=== PATIENT | female | born 1955 | race Caucasian/White ===

== ENCOUNTER 2020-05-15 10:12 | Outpatient (REF) | payer MEDICARE, SELFPAY ==
--- NOTE | 2020-05-15 | MM_ITS ---
EXAMINATION: MM SCREENING DIGITAL BREAST TOMOSYNTHESIS, BILATERAL CLINICAL INFORMATION: Screening. Asymptomatic. The lifetime risk of breast cancer based on the Tyrer-Cuzick Model is 9%. COMPARISON: Mammography: 05/10/2019, 04/20/2018 TECHNIQUE: Digital breast tomosynthesis is performed in both the craniocaudal and mediolateral oblique views along with computer-aided detection (CAD). Synthesized 2D images are generated from the tomosynthesis. FINDINGS: The breasts are extremely dense, which lowers the sensitivity of mammography (ACR BI-RADS breast composition Category d). There are no significant masses, abnormal calcifications, or other abnormalities. Parenchymal pattern is similar to prior exams. No significant changes. MM/MM tomosynthesis screening BI IMPRESSION: No mammographic evidence of malignancy. ASSESSMENT: BI-RADS 1: Negative RECOMMENDATION: Routine annual mammography screening. This patient's information was entered into a reminder system with a target due date for their next mammogram.
== END 2020-05-15 10:13 | disposition home or self-care (01) ==
LOC: HO.MAMMO 10:12
PROVIDERS: PCP Internal Medicine; Visit Provider Internal Medicine
DX: Z12.31 Encounter for screening mammogram for malignant neoplasm of breast (principal)
CPT/HCPCS: 77063; 77067

== ENCOUNTER → 2020-06-09 13:00 | Outpatient (BNVA) | payer MEDICARE, SELFPAY | PROVIDERS: Visit Provider Physician Assistant | DX: M18.12 Unilateral primary osteoarthritis of first carpometacarpal joint, left hand (principal) | CPT/HCPCS: 20600; 99212; J1020 ==

== ENCOUNTER → 2020-06-24 15:00 | Outpatient (BNVA) | payer MEDICARE, SELFPAY | PROVIDERS: PCP Internal Medicine; Referring Provider Internal Medicine; Visit Provider Obstetrics & Gynecology | DX: Z76.89 Persons encountering health services in other specified circumstances (principal) ==

== ENCOUNTER 2020-10-14 07:19 | Outpatient (REF) | payer MEDICARE, SELFPAY ==
[2020-10-14 11:18] LABS: MANUAL DIFF FLAG NO
[2020-10-14 11:27] LABS: Basophils Absolute Auto 0.1 X10*3/uL (0.0-0.2); Basophils Percent Auto 0.9 % (0-2); Eosinophils Absolute Auto 0.2 X10*3/uL (0.0-0.4); Eosinophils Percent Auto 2.9 % (0-4); Hemoglobin 14.3 g/dl (12.0-16.0); Imm Gran Abs Auto 0.01 X10*3/uL (0.00-0.03); Imm Gran Pct Auto 0.2 % (0.0-0.4); Lymphocytes Percent Auto 34.8 % (20-40); Mean Corpuscular HGB Conc 32.5 g/dl (31.0-35.0); Mean Corpuscular Hemoglobin 30.5 pg (27.0-33.0); Mean Corpuscular Volume 93.8 fL (80-98); Mean Platelet Volume 12.1 fL (9.4-12.3); Monocytes Absolute Auto 0.3 X10*3/uL (0.1-1.2); Monocytes Percent Auto 5.8 % (2-11); Neutrophils Absolute Auto 3.3 X10*3/uL (2.0-8.3); Neutrophils Percent Auto 55.4 % (45-73); Platelet Count 200 X10*3/uL (160-400); Red Blood Count 4.69 X10*6/uL (4.20-5.50); Red Cell Distribution Width 13.1 % (11.0-16.0); White Blood Count 5.9 X10*3/uL (4.8-10.8)
[2020-10-14 12:09] LABS: Alanine Aminotransferase 23 U/L (0-31); Albumin Level 4.3 g/dL (3.5-5.0); Alkaline Phosphatase 62 U/L (39-117); Anion Gap 17 (12-20); Aspartate Amino Transferase 23 U/L (5-31); Bilirubin Total 0.3 mg/dL (0.0-1.0); Blood Urea Nitrogen 28 mg/dL (9-16); Calcium 9.2 mg/dL (8.4-10.2); Carbon Dioxide 24 mmol/L (22-29); Chloride 104 mmol/L (96-108); Cholesterol 259 mg/dL; Estimated Glomerular Filt Rate > 60; Glucose Fasting 99 mg/dL (60-99); HDL Cholesterol 77 mg/dL; LDL Cholesterol Calculated 165 mg/dl; Potassium 4.3 mmol/L (3.3-5.1); Sodium 141 mmol/L (135-145); Total Protein 6.9 g/dL (6.5-8.0); Triglycerides 85 mg/dL
== END 2020-10-14 07:20 | disposition home or self-care (01) ==
LOC: HO.HMGCLDS 07:19
PROVIDERS: PCP Internal Medicine; Visit Provider Internal Medicine
DX: Z00.00 Encounter for general adult medical examination without abnormal findings (principal); K21.9 Gastro-esophageal reflux disease without esophagitis; F41.9 Anxiety disorder, unspecified; E78.00 Pure hypercholesterolemia, unspecified
CPT/HCPCS: 36415; 80053; 80061; 85025

== ENCOUNTER 2020-10-20 16:35 | Outpatient (REF) | payer MEDICARE, SELFPAY ==
--- NOTE | ~2020-10-20 | XR_ITS ---
EXAMINATION: XR HAND, LEFT CLINICAL INFORMATION: Left hand pain. COMPARISON: 09/07/2018 and 05/16/2019 TECHNIQUE: PA, lateral, and oblique views of the left hand. FINDINGS: No acute fracture or dislocation is evident. There is again noted to be joint space narrowing with subchondral cyst formation spurring and articular irregularity involving the 2nd, 3rd, and 5th distal interphalangeal joints. No erosive changes to suggest erosive arthritides is seen. There is also degenerative spurring and sclerosis involving the 1st carpometacarpal joint. There is no significant change compared to study of 05/16/2019. XR/XR hand LT min 3V IMPRESSION: Changes of osteoarthritis involving the 1st carpometacarpal joint and the 2nd, 3rd, and 5th distal interphalangeal joints. No evidence of erosive arthritides.
== END 2020-10-20 16:36 | disposition home or self-care (01) ==
LOC: HO.HOSX 16:35
PROVIDERS: Visit Provider Orthopaedic Surgery
DX: M79.642 Pain in left hand (principal)
CPT/HCPCS: 73130

== ENCOUNTER → 2020-10-21 13:27 | Outpatient (BNVA) | payer MEDICARE, SELFPAY | PROVIDERS: PCP Internal Medicine; Visit Provider Orthopaedic Surgery | DX: M18.12 Unilateral primary osteoarthritis of first carpometacarpal joint, left hand (principal) | CPT/HCPCS: 20605; 99202; J1020 ==

== ENCOUNTER 2020-11-07 09:03 | Day surgery (SDC) | payer MEDICARE, SELFPAY ==
[2020-11-04 08:14] VITALS: BMI 23.1
[2020-11-07 10:48] VITALS: BP 147/66; PULSE 64; RESP 16; TEMP 36.2; O2SAT 99
[2020-11-07] MEDS: Lactated Ringers 1,000 ML 50 ML IV (10:54)
--- NOTE | 2020-11-07 11:13 | P.CONAN_ITS ---
[facility] Active Problems Active Problems: All Active Problems (Updated 11/04/20 @ 08:11 by Carol pimentel) Arthritis of carpometacarpal (CMC) joint of left thumb (Acute) Past Medical History Medical History Anxiety Arthritis GERD (gastroesophageal reflux disease) History of ectopic Volvulus Family History Family History Father Alzheimer's dementia Mother Emphysema of lung Surgical History Surgical History History of intestinal surgery History of ovarian cystectomy History of salpingectomy Hx of colonoscopy Social History Social History Are you a primary home care rn to a significant other at home: No Do you presently have visiting nurse or other home services: No Alcohol intake: current Alcohol intake frequency: holidays/special occasions only Smoking Status: Current every day smoker Tobacco Type: Cigarette Packs Per Day: 0.5 Years Smoked: 0.5 Advance Directives: No Advance Directives Information Provided: No Advance Directives on File: No Current occupational status: retired Current occupation: rt handed Sexual orientation: Straight/Heterosexual Gender identity: female Meds Allergies Allergy/AdvReac Type Severity Reaction Status Date / Time Sulfa (Sulfonamide Allergy Unknown SKIN Verified 11/04/20 08:11 Antibiotics) HURTS, [SULFA (SULFONAMIDE nerve ANTIBIOTICS)] pain, skin extremely sensitive, painful yellow jacket bee Allergy Unknown rash Uncoded 11/04/20 08:11 Active Medications: Current Medications Generic Name Dose Route Start Last Admin Trade Name Freq PRN Reason Stop Dose Admin Lactated Ringer's 1,000 mls @ 50 mls/hr 11/06/20 07:30 11/07/20 10:54 Lr IV 50 mls/hr .Q20H CRISPIN Administration Sodium Biphosphate/Sodium Phosphate 133 ml 11/07/20 10:45 Sodium Phosphate,Glades-Dibasic 133 Ml Enema MT ONCE PRN Poor Colonoscopy Prep Results Home Medications Medication Instructions Recorded Confirmed Last Taken Type nortriptyline 50 mg capsule 50 mg PO BEDTIME 06/09/20 11/04/20 Unknown History pantoprazole 40 mg granules 40 mg PO DAILY 06/09/20 11/07/20 11/07/20 06:00 History delayed-release for susp in packet trazodone 50 mg tablet 50 mg PO BEDTIME PRN 06/09/20 11/04/20 Unknown History Exam Exam Date and Time: November 07, 2020 1113 Height,Weight and Vital Signs: Height 5 ft 3.5 in Weight 60.328 kg Last Vital Signs Temp 97.2 F 11/07/20 10:48 Pulse 64 11/07/20 10:48 Resp 16 11/07/20 10:48 BP 147/66 H 11/07/20 10:48 Pulse Ox 99 11/07/20 10:48 Airway Mallampati Class: II TM Dist: >3cm Neck ROM: Full
[2020-11-07 12:11] VITALS: BP 108/59; PULSE 55; RESP 16; TEMP 36.1; O2SAT 98
--- NOTE | 2020-11-07 12:12 | PM.OP ---
Brief Operative Note Date of Service: 11/07/20 Pre-op diagnosis: GERD, Screening Post-op diagnosis: other (Small hiatal hernia, Gastric polyps, Mild diverticulosis, Internal hemrorhoids) Procedure: EGD with biopsies, Colonoscopy to the anastomosis and small intestine Surgeon: Bhupinder Carlisle Anesthesia: MAC Estimated blood loss (mL): 4.0 Pathology: other (A. Gastric polyps) Condition: stable Disposition: PACU
[2020-11-07 12:30] VITALS: BP 103/39; PULSE 63; RESP 16; TEMP 36.1; O2SAT 98
--- NOTE | 2020-11-07 12:39 | OP_ITS ---
SURGEON: Bhupinder Carlisle MD INDICATIONS: The patient presents for evaluation of gastroesophageal reflux and colorectal cancer screening with personal history of colon polyps. Full consent has been obtained from her for both procedures, including risks of bleeding and perforation. PREOPERATIVE DIAGNOSIS: POSTOPERATIVE DIAGNOSIS: PROCEDURE PERFORMED: Esophagogastroduodenoscopy with biopsies, and colonoscopy to the anastomosis. ESTIMATED BLOOD LOSS: COMPLICATIONS: ANESTHESIA: Monitored anesthesia care. ASSISTANTS: SPECIMENS: PREOPERATIVE DIAGNOSES: Gastroesophageal reflux and colorectal cancer screening. POSTOPERATIVE DIAGNOSES: Gastroesophageal reflux and colorectal cancer screening, small hiatal hernia, gastric polyps, mild diverticulosis, internal hemorrhoids. DESCRIPTION OF PROCEDURE: The patient was placed in the left lateral decubitus position. The Olympus video gastroscope was passed in the posterior oropharynx and upper esophagus under direct vision. The scope was passed slowly into the distal esophagus. The gastroesophageal junction appeared normal at 36 cm. There was no sign of any esophagitis nor Burnett's mucosa. There was a small hiatal hernia. The scope was advanced to the pylorus and the duodenum was cannulated to the descending portion. The duodenum including the bulb appeared normal without mass or ulceration. The scope was withdrawn back in the stomach. The gastric antrum and body appeared normal with good peristalsis. Scope was retroflexed visualizing the proximal stomach carefully, which appeared normal, without any sign of mass or ulceration, other than some hyperplastic gastric polyps. Several of these were biopsied. The scope was straightened out and withdrawn back into the esophagus. The esophageal mucosa appeared normal. The scope was withdrawn from the patient. She was turned around for colonoscopy. The digital rectal exam revealed no abnormalities. The Olympus video pediatric colonoscope was entered into the rectum and advanced easily to the anastomosis. The small bowel mucosa appeared normal. The anastomosis appeared normal. The scope was then slowly withdrawn assessing all mucosal surfaces carefully. Preparation was excellent. I did not visualize any sign of polyps, colitis, nor angiodysplasia. There was a mild amount of sigmoid diverticulosis. In the rectum, scope was retroflexed visualizing internal hemorrhoids, but no other pathology. The rectal mucosa appeared normal. The scope was straightened out and withdrawn from the patient. She tolerated the procedures well and was returned to the recovery area in stable condition. IMPRESSION: 1. Gastric polyps. 2. Small hiatal hernia. 3. Mild diverticulosis. 4. Internal hemorrhoids. PLAN: The results of biopsy will be checked. She was advised to continue her daily pantoprazole for her reflux. I do not think she will need any further upper endoscopies. I would recommend a repeat colonoscopy in 5 years for further screening given the previous history of polyps. MD ROMEL Piedra/JOAQUÍN / [id number]
== END 2020-11-07 13:20 | disposition home or self-care (01) ==
PROVIDERS: PCP Internal Medicine; Visit Provider Internal Medicine
PROC: (CPT 43239; principal; 2020-11-07 10:20)
DX: Z12.11 Encounter for screening for malignant neoplasm of colon (principal); Z86.010 Personal history of colon polyps; K57.30 Diverticulosis of large intestine without perforation or abscess without bleeding; K64.8 Other hemorrhoids; K21.9 Gastro-esophageal reflux disease without esophagitis; K31.7 Polyp of stomach and duodenum; K44.9 Diaphragmatic hernia without obstruction or gangrene; Z79.899 Other long term (current) drug therapy
CPT/HCPCS: 43239; G0105; 88305; 88342; J3010

== ENCOUNTER → 2021-05-05 14:33 | Outpatient (BNVA) | payer MEDICARE, SELFPAY | PROVIDERS: PCP Internal Medicine; Visit Provider Orthopaedic Surgery | DX: M18.12 Unilateral primary osteoarthritis of first carpometacarpal joint, left hand (principal) | CPT/HCPCS: 20600; 99212; J1020 ==

== ENCOUNTER 2021-05-27 06:14 | Outpatient (REF) | payer MEDICARE, SELFPAY ==
[2021-05-27 11:55] LABS: Alanine Aminotransferase 18 U/L (0-31); Albumin Level 4.2 g/dL (3.5-5.0); Alkaline Phosphatase 58 U/L (39-117); Anion Gap 13 (12-20); Aspartate Amino Transferase 19 U/L (5-31); Bilirubin Total 0.5 mg/dL (0.0-1.0); Blood Urea Nitrogen 28 mg/dL (9-16); Calcium 8.9 mg/dL (8.4-10.2); Carbon Dioxide 25 mmol/L (22-29); Chloride 106 mmol/L (96-108); Cholesterol 188 mg/dL; Estimated Glomerular Filt Rate > 60; Glucose Fasting 97 mg/dL (60-99); HDL Cholesterol 70 mg/dL; LDL Cholesterol Calculated 104 mg/dl; Potassium 4.3 mmol/L (3.3-5.1); Sodium 140 mmol/L (135-145); Total Protein 6.8 g/dL (6.5-8.0); Triglycerides 71 mg/dL
== END 2021-05-27 06:15 | disposition home or self-care (01) ==
LOC: HO.HMGCLDS 06:14
PROVIDERS: PCP Internal Medicine; Visit Provider Internal Medicine
DX: K21.9 Gastro-esophageal reflux disease without esophagitis (principal); E78.00 Pure hypercholesterolemia, unspecified
CPT/HCPCS: 36415; 80053; 80061

== ENCOUNTER 2021-05-29 12:02 | Outpatient (REF) | payer MEDICARE, SELFPAY ==
--- NOTE | ~2021-05-29 | MM_ITS ---
EXAMINATION: MM SCREENING DIGITAL BREAST TOMOSYNTHESIS, BILATERAL CLINICAL INFORMATION: Screening. Asymptomatic. The lifetime risk of breast cancer based on the Tyrer-Cuzick Model is 6%. COMPARISON: Mammography: 05/15/2020, 05/10/2019, 04/20/2018, 03/16/2017 TECHNIQUE: Digital breast tomosynthesis is performed in both the craniocaudal and mediolateral oblique views along with computer-aided detection (CAD). Synthesized 2D images are generated from the tomosynthesis. FINDINGS: The breasts are extremely dense, which lowers the sensitivity of mammography (ACR BI-RADS breast composition Category d). There are no significant masses, abnormal calcifications, or other abnormalities. Parenchymal pattern is similar to prior studies. There is no developing density. No interval mass or architectural abnormality or abnormal calcifications. Skin contours are smooth. MM/MM tomosynthesis screening BI IMPRESSION: No significant changes from prior exams. ASSESSMENT: BI-RADS 1: Negative RECOMMENDATION: Routine annual mammography screening. This patient's information was entered into a reminder system with a target due date for their next mammogram.
== END 2021-05-29 12:03 | disposition home or self-care (01) ==
LOC: HO.MAMMO 12:02
PROVIDERS: PCP Internal Medicine; Visit Provider Internal Medicine
DX: Z12.31 Encounter for screening mammogram for malignant neoplasm of breast (principal)
CPT/HCPCS: 77063; 77067

== ENCOUNTER → 2021-09-08 12:14 | Outpatient (BNVA) | payer MEDICARE, SELFPAY | PROVIDERS: PCP Internal Medicine; Visit Provider Orthopaedic Surgery | DX: M18.12 Unilateral primary osteoarthritis of first carpometacarpal joint, left hand (principal) | CPT/HCPCS: 20605; 99212; J1020 ==

== ENCOUNTER → 2022-01-13 13:07 | Outpatient (BNVA) | payer MEDICARE, SELFPAY | PROVIDERS: PCP Internal Medicine; Visit Provider Orthopaedic Surgery | DX: M18.12 Unilateral primary osteoarthritis of first carpometacarpal joint, left hand (principal) | CPT/HCPCS: 20605; 99212; J1020; J1100 ==

== ENCOUNTER → 2022-06-22 09:01 | Outpatient (BNVA) | payer MEDICARE, SELFPAY | PROVIDERS: PCP Internal Medicine; Visit Provider Orthopaedic Surgery | DX: M18.12 Unilateral primary osteoarthritis of first carpometacarpal joint, left hand (principal) | CPT/HCPCS: 20600; 99212; J1020 ==

== ENCOUNTER 2022-07-27 12:42 | Outpatient (REF) | payer MEDICARE, SELFPAY ==
--- NOTE | ~2022-07-27 | MM_ITS ---
EXAMINATION: MM SCREENING DIGITAL BREAST TOMOSYNTHESIS, BILATERAL CLINICAL INFORMATION: Screening. Asymptomatic. The lifetime risk of breast cancer based on the Tyrer-Cuzick Model is 6%. COMPARISON: Mammography: 05/29/2021, 05/15/2020, 05/10/2019 TECHNIQUE: Digital breast tomosynthesis is performed in both the craniocaudal and mediolateral oblique views along with computer-aided detection (CAD). Synthesized 2D images are generated from the tomosynthesis. FINDINGS: The breasts are extremely dense, which lowers the sensitivity of mammography (ACR BI-RADS breast composition Category d). Breast tissue composition borders on heterogeneously dense. No developing density or architectural abnormality. There are no significant masses, abnormal calcifications, or other abnormalities. The axilla and skin contours are unremarkable. MM/MM tomosynthesis screening BI IMPRESSION: No mammographic evidence of malignancy. ASSESSMENT: BI-RADS 1: Negative RECOMMENDATION: Routine annual mammography screening. This patient's information was entered into a reminder system with a target due date for their next mammogram.
== END 2022-07-27 12:43 | disposition home or self-care (01) ==
LOC: HO.MAMMO 12:42
PROVIDERS: Visit Provider Internal Medicine
DX: Z12.31 Encounter for screening mammogram for malignant neoplasm of breast (principal)
CPT/HCPCS: 77063; 77067

== ENCOUNTER 2022-07-28 06:52 | Outpatient (REF) | payer MEDICARE, SELFPAY ==
[2022-07-28 11:29] LABS: MANUAL DIFF FLAG NO
[2022-07-28 11:54] LABS: Basophils Absolute Auto 0.1 X10*3/uL (0.0-0.2); Basophils Percent Auto 1.3 % (0-2); Eosinophils Absolute Auto 0.2 X10*3/uL (0.0-0.4); Eosinophils Percent Auto 2.8 % (0-4); Hemoglobin 14.2 g/dl (12.0-16.0); Imm Gran Abs Auto 0.01 X10*3/uL (0.00-0.03); Imm Gran Pct Auto 0.2 % (0.0-0.4); Lymphocytes Absolute Auto 1.8 X10*3/uL (1.2-4.9); Lymphocytes Percent Auto 33.6 % (20-40); Mean Corpuscular Hemoglobin 30.7 pg (27.0-33.0); Mean Corpuscular Volume 93.1 fL (80.0-98.0); Monocytes Absolute Auto 0.4 X10*3/uL (0.1-1.2); Monocytes Percent Auto 7.6 % (2-11); Neutrophils Absolute Auto 2.9 x10*3/uL (2.0-8.3); Neutrophils Percent Auto 54.5 % (45-73); Platelet Count 194 X10*3/uL (160-400); Red Blood Count 4.62 X10*6/uL (4.20-5.50); Red Cell Distribution Width 12.9 % (11.0-16.0); White Blood Count 5.4 X10*3/uL (4.8-10.8)
[2022-07-28 13:14] LABS: Alanine Aminotransferase 21 U/L (0-31); Alkaline Phosphatase 62 U/L (39-117); Anion Gap 12 (12-20); Aspartate Amino Transferase 20 U/L (5-31); Bilirubin Total 0.7 mg/dL (0.0-1.0); Blood Urea Nitrogen 20 mg/dL (9-16); Calcium 9.2 mg/dL (8.4-10.2); Carbon Dioxide 27 mmol/L (22-29); Chloride 105 mmol/L (96-108); Cholesterol 194 mg/dL; Estimated Glomerular Filt Rate > 60; Glucose Fasting 105 mg/dL (60-99); HDL Cholesterol 75 mg/dL; LDL Cholesterol Calculated 106 mg/dl; Potassium 4.3 mmol/L (3.3-5.1); Sodium 140 mmol/L (135-145); Total Protein 6.4 g/dL (6.5-8.0); Triglycerides 67 mg/dL
[2022-07-28 13:17] LABS: Thyroid Stimulating Hormone 0.84 uIU/mL (0.32-4.0); Vitamin D 25-OH Total 41.4 ng/mL (>30)
== END 2022-07-28 06:53 | disposition home or self-care (01) ==
LOC: HO.HMGCLDS 06:52
PROVIDERS: PCP Internal Medicine; Visit Provider Internal Medicine
DX: K21.9 Gastro-esophageal reflux disease without esophagitis (principal); E78.00 Pure hypercholesterolemia, unspecified; F41.9 Anxiety disorder, unspecified
CPT/HCPCS: 36415; 80053; 80061; 82306; 84443; 85025

== ENCOUNTER → 2022-10-19 11:32 | Outpatient (BNVA) | payer MEDICARE, SELFPAY | PROVIDERS: PCP Internal Medicine; Visit Provider Orthopaedic Surgery | DX: M18.12 Unilateral primary osteoarthritis of first carpometacarpal joint, left hand (principal) | CPT/HCPCS: 20600; 99212; J1020 ==

== ENCOUNTER 2023-02-23 10:39 | Outpatient (AMB) | payer MEDICARE, SELFPAY ==
--- NOTE | 2023-02-23 11:26 | A.OFFVIS_ITS ---
Intake Vital Signs 02/23/23 11:29 Height 5 ft 3.5 in Weight 133 lb BMI 23.2 Intake Visit Reasons: OV-LT thumb pain, last inj-10/19/22 Intake Note: Demetra 66 yr old female presents today for her Arthritis of carpometacarpal (CMC) joint of left thumb s/p injection from 10/19/22. States she would like to repeat injection today. States she has shingles in December and was taking tylenol and that also helped with her O.A pain. Allergies Sulfa (Sulfonamide Antibiotics) [SULFA (SULFONAMIDE ANTIBIOTICS)] Allergy (Un known, Verified 02/23/23 11:29) SKIN HURTS, nerve pain, skin extremely sensitive, painful yellow jacket bee Allergy (Unknown, Uncoded 02/23/23 11:29) rash HPI OV-LT thumb pain, last inj-10/19/22 HPI Details Demetra is a 66 year old woman with left basal joint OA. She has a Hx of repeat steroid injections, her last was on 10/19/22 which she says helped her for a good 3 months. She has pain at the base of her left thumb, which she describes as sharp, but this is intermittent. She has been wearing a neoprene thumb spica splint with daytime activities and while sleeping. 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 [facility] Medical History Anxiety Arthritis GERD (gastroesophageal reflux disease) History of ectopic Volvulus Surgical History History of intestinal surgery History of ovarian cystectomy History of salpingectomy Hx of colonoscopy Family History Father Alzheimer's dementia Mother Emphysema of lung Social History Are you a primary neonatal intensive care nurse to a significant other at home: No Do you presently have visiting nurse or other home services: No Alcohol intake: current Alcohol intake frequency: holidays/special occasions only Patient Tobacco Use Status: Never used Tobacco Cigarette Packs Per Day: 0.5 Years Smoked: 0.5 Current occupational status: retired Current occupation: rt handed Sexual orientation: Straight/Heterosexual Gender identity: Female Female Reproductive History Menstrual Age of Menarche: 10 Review of Systems Const All systems reviewed & are unremarkable except as noted in HPI and below Physical Exam Vital Signs: BMI result Body Mass Index 23.2 Const General: cooperative, healthy appearing and no acute distress Orientation/consciousness: patient oriented x3 Neuro General: patient oriented x3 Extrem Other: Evaluation of Left Upper Extremity: The patient is alert, oriented, and in no acute distress Median, Ulnar, Radial nerves motor and sensory intact and sensation is normal to the tips of all digits Cap refill brisk Can bring fingers closed to a fist and back out to full extension. She is most tender to palpation over the basal joint of the left thumb. Positive shoulder sign and positive CMC grind. Not particularly tender over the MCP joint or over the 1st dorsal compartment. Psych Appearance: grossly normal Affect: normal affect Attitude: cooperative Office Procedures Fracture Care Details: No fracture, injection Fracture Billing Code: Fracture Billing Code Results Reviewed Results Reviewed: 02/23/23 11:32 Lidocaine HCl 1 % [Xylocaine 1 %] 2 ml .ROUTE .STK-MED ONE methylPREDNISolone acetate [DEPO-MedroL] 40 mg .ROUTE .STK-MED ONE Assessment & Plan Assessment & Plan (1) Arthritis of carpometacarpal (CMC) joint of left thumb: Code(s): M18.12 - Unilateral primary osteoarthritis of first carpometacarpal joint, left hand Plan Assessment and plan: 1. Left basal joint osteoarthritis, S/P injections Date of Injections: 02/23/23, 10/19/22, 06/22/22, 01/13/22, 09/08/21, 05/05/2021, 10/21/2020 & 06/2020 I educated the patient about this condition We discussed the importance of activity modification. She will continue to wear her neoprene thumb spica splint with daytime activities, prn We discussed treatment options. She would like to try another injection today Injection #1 : The risks and benefits of a steroid injection including but not limited to risk of damage to blood vessels, nerve, tendon, infection, skin bleaching, persistent or worsening pain, and failure to improve symptoms were discussed with the patient and they wish to proceed with the steroid injection. Once consent was obtained the skin over the dorsum of the left basal joint was sterilely prepped.? The joint was then injected with a combination of 1 mL of (40 mg/ml} Depo-Medrol and 0.25 % plain Marcaine.? The patient appears to have tolerated the procedure well and with no complications.? She had good relief of her symptoms before leaving clinic today. She may not have another steroid injection for 4 months. Follow-up prn Scribed for Gillian Box MD by Ray Roman, senior medical billing specialist, on 02/23/23 at 11:40 AM, EST. Coding Level of Care Code Est Pt Level 3 (47839) Diagnoses Arthritis of carpometacarpal (CMC) joint of left thumb M18.12 CPT Codes Fracture Care - Fracture Billing Code: Fracture Billing Code ([id number])
[2023-02-23 11:29] VITALS: BMI 23.2
== END 2023-02-23 11:50 | disposition home or self-care (01) ==
PROVIDERS: Visit Provider Orthopaedic Surgery
DX: M18.12 Unilateral primary osteoarthritis of first carpometacarpal joint, left hand (principal)
CPT/HCPCS: 20600

== ENCOUNTER → 2023-02-23 10:39 | Outpatient (BNVA) | payer MEDICARE, SELFPAY | PROVIDERS: Visit Provider Orthopaedic Surgery | DX: M18.12 Unilateral primary osteoarthritis of first carpometacarpal joint, left hand (principal) | CPT/HCPCS: 20600; J1020 ==

== ENCOUNTER 2023-07-26 12:31 | Outpatient (AMB) | payer MEDICARE, SELFPAY ==
--- NOTE | 2023-07-26 12:33 | MHC.OFFVIS ---
Intake Vital Signs 07/26/23 12:35 Height 5 ft 3.5 in Weight 133 lb BMI 23.2 Intake Visit Reasons: OV-LT thumb pain, last inj 02/23/23 Intake Note: Demetra 66 yr old female presents today for her Arthritis of carpometacarpal (CMC) joint of left thumb s/p injection from 02/23/23. States injection helped and states she would like to repeat injection today. Allergies Sulfa (Sulfonamide Antibiotics) [SULFA (SULFONAMIDE ANTIBIOTICS)] Allergy (Unknown, Verified 07/26/23 12:33) SKIN HURTS, nerve pain, skin extremely sensitive, painful yellow jacket bee Allergy (Unknown, Uncoded 07/26/23 12:33) rash HPI OV-LT thumb pain, last inj 02/23/23 HPI Details Demetra is a 68 year old woman with left basal joint OA. She has a Hx of repeat steroid injections, her last was on 02/23/23 which she says was really only helpful for a few weeks this time. She has pain at the base of her left thumb, which she describes as sharp, but this is intermittent. She says this sharp pain has been occurring more occasionally when gripping objects. She has also been helping her remove his compression stockings at night and this has been causing her pain at times. 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 [facility] Medical History Anxiety Arthritis GERD (gastroesophageal reflux disease) Volvulus History of ectopic Surgical History Hx of colonoscopy History of intestinal surgery History of ovarian cystectomy History of salpingectomy Family History Father Alzheimer's dementia Mother Emphysema of lung Social History Are you a primary career information specialist to a significant other at home: No Do you presently have visiting nurse or other home services: No Alcohol intake: current Alcohol intake frequency: holidays/special occasions only Patient Tobacco Use Status: Never used Tobacco Cigarette Packs Per Day: 0.5 Years Smoked: 0.5 Current occupational status: retired Current occupation: rt handed Sexual orientation: Straight/Heterosexual Gender identity: Female Female Reproductive History Menstrual Age of Menarche: 10 Physical Exam Vital Signs: BMI result Body Mass Index 23.2 Const General: cooperative, healthy appearing and no acute distress Orientation/consciousness: patient oriented x3 Neuro General: patient oriented x3 Extrem Other: Evaluation of Left Upper Extremity: The patient is alert, oriented, and in no acute distress Median, Ulnar, Radial nerves motor and sensory intact and sensation is normal to the tips of all digits Cap refill brisk Can bring fingers closed to a fist and back out to full extension. She is most tender to palpation over the basal joint of the left thumb. Positive shoulder sign and positive CMC grind. Not particularly tender over the MCP joint or over the 1st dorsal compartment. Psych Appearance: grossly normal Affect: normal affect Attitude: cooperative Office Procedures Fracture Care Details: No fracture, injection Fracture Billing Code: Fracture Billing Code Assessment & Plan Assessment & Plan (1) Arthritis of carpometacarpal (CMC) joint of left thumb: Code(s): M18.12 - Unilateral primary osteoarthritis of first carpometacarpal joint, left hand Plan Assessment and plan: 1. Left basal joint osteoarthritis, S/P injections Date of Injections: 07/26/23, 02/23/23, 10/19/22, 06/22/22, 01/13/22, 09/08/21, 05/05/2021, 10/21/2020 & 06/2020 I educated the patient about this condition We discussed the importance of activity modification. She was fitted for a new neoprene thumb spica splint to be worn with daily activity We discussed treatment options. She would like to try another injection today Injection #1 : The risks and benefits of a steroid injection including but not limited to risk of damage to blood vessels, nerve, tendon, infection, skin bleaching, persistent or worsening pain, and failure to improve symptoms were discussed with the patient and they wish to proceed with the steroid injection. Once consent was obtained the skin over the dorsum of the left basal joint was sterilely prepped.? The joint was then injected with a combination of 1 mL of (40 mg/ml} Depo-Medrol and 0.25 % plain Marcaine.? The patient appears to have tolerated the procedure well and with no complications.? She had good relief of her symptoms before leaving clinic today. She may not have another steroid injection for 4 months. Follow-up prn Scribed for Gillian Box MD by Ray Roman, medical library assistant, on 07/26/23 at 12:55 PM, EST. Coding Level of Care Code Est Pt Level 3 (53817) Diagnoses Arthritis of carpometacarpal (CMC) joint of left thumb M18.12 CPT Codes Fracture Care - Fracture Billing Code: Fracture Billing Code ([id number])
[2023-07-26 12:35] VITALS: BMI 23.2
== END 2023-07-26 13:18 | disposition home or self-care (01) ==
PROVIDERS: Visit Provider Orthopaedic Surgery
DX: M18.12 Unilateral primary osteoarthritis of first carpometacarpal joint, left hand (principal)
CPT/HCPCS: 20600; 99213

== ENCOUNTER → 2023-07-26 12:31 | Outpatient (BNVA) | payer MEDICARE, SELFPAY | PROVIDERS: Visit Provider Orthopaedic Surgery | DX: M18.12 Unilateral primary osteoarthritis of first carpometacarpal joint, left hand (principal) | CPT/HCPCS: 20600; 99212; J1020 ==

== ENCOUNTER 2023-09-28 13:31 | Outpatient (REF) | payer MEDICARE, SELFPAY ==
--- NOTE | ~2023-09-28 | MM_ITS ---
EXAMINATION: MM SCREENING DIGITAL BREAST TOMOSYNTHESIS, BILATERAL CLINICAL INFORMATION: Screening. Asymptomatic. COMPARISON: Mammography: This study is compared with prior exams dating back to 2019. TECHNIQUE: Digital breast tomosynthesis is performed in both the craniocaudal and mediolateral oblique views along with computer-aided detection (CAD). Synthesized 2D images are generated from the tomosynthesis. FINDINGS: The breasts are extremely dense, which lowers the sensitivity of mammography (ACR BI-RADS breast composition Category d). There are no significant masses, abnormal calcifications, or other abnormalities. MM/MM tomosynthesis screening BI IMPRESSION: No mammographic evidence of malignancy. ASSESSMENT: BI-RADS BI-RADS 1 - Negative RECOMMENDATION: Routine annual mammography screening. 1 year F/U This examination should not preclude the clinical evaluation of a suspicious palpable abnormality. This patient's information was entered into a reminder system with a target due date for their next mammogram.
== END 2023-09-28 13:32 | disposition home or self-care (01) ==
LOC: HO.MAMMO 13:31
PROVIDERS: PCP Internal Medicine; Visit Provider Internal Medicine
DX: Z12.31 Encounter for screening mammogram for malignant neoplasm of breast (principal)
CPT/HCPCS: 77063; 77067

== ENCOUNTER → 2023-09-28 13:45 | Outpatient (BNV) | payer MEDICARE, SELFPAY | PROVIDERS: PCP Internal Medicine; Visit Provider Radiology Diagnostic Radiology | DX: Z12.31 Encounter for screening mammogram for malignant neoplasm of breast (principal) | CPT/HCPCS: 77063; 77067 ==

== ENCOUNTER 2023-11-29 10:09 | Outpatient (REF) | payer MEDICARE, SELFPAY ==
--- NOTE | ~2023-11-29 | XR_ITS ---
EXAMINATION: XR HAND, LEFT CLINICAL INFORMATION: Pain in left hand. Attention base of the thumb. COMPARISON: None available. TECHNIQUE: PA, lateral, and oblique views of the left hand. FINDINGS: There is advanced osteoarthritis of the first carpometacarpal joint manifested by severe joint space narrowing subchondral cysts marginal osteophytes and subchondral sclerosis. There is a at least moderate osteoarthritis involving the third and fifth DIP joints manifested by marginal osteophytes and nonuniform joint space narrowing. Mild osteoarthritis of the second DIP joint manifested by subchondral cysts. XR/XR hand LT min 3V IMPRESSION: 1. Advanced osteoarthritis of the first carpometacarpal joint. 2. At least moderate osteoarthritis of the DIP joints.
== END 2023-11-29 10:10 | disposition home or self-care (01) ==
LOC: HO.HOSX 10:09
PROVIDERS: Visit Provider Orthopaedic Surgery
DX: M18.9 Osteoarthritis of first carpometacarpal joint, unspecified (principal)
CPT/HCPCS: 20600; 73130; 99212; J1010

== ENCOUNTER 2023-11-29 13:43 | Outpatient (AMB) | payer MEDICARE, SELFPAY ==
[2023-11-29 13:57] VITALS: BMI 23.2
--- NOTE | 2023-11-29 13:57 | MHC.OFFVIS ---
Vital Signs 11/29/23 13:57 Height 5 ft 3.5 in Weight 133 lb BMI 23.2 Intake Visit Reasons: OV- Lt Thumb INJ 07/26/23 Intake Note: Demetra 66 yr old female presents today for her Arthritis of carpometacarpal (CMC) joint of left thumb s/p injection from 07/26/23. States injection helped and states she would like to repeat injection today. Allergies Sulfa (Sulfonamide Antibiotics) [SULFA (SULFONAMIDE ANTIBIOTICS)] Allergy (Unknown, Verified 11/29/23 13:58) SKIN HURTS, nerve pain, skin extremely sensitive, painful yellow jacket bee Allergy (Unknown, Uncoded 11/29/23 13:58) rash HPI HPI OV- Lt Thumb INJ 07/26/23: Details: Demetra is a 68 year old woman with left basal joint OA. She has a Hx of repeat steroid injections, her last was on 07/26/23 which she says was helpful She has pain at the base of her left thumb, which she describes as sharp, but this is intermittent. She says this sharp pain has been occurring more occasionally when gripping objects. She says her pain returned only a few days ago, otherwise her most recent injection was very helpful. 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 [facility] Medical History Anxiety Arthritis GERD (gastroesophageal reflux disease) Volvulus History of ectopic Surgical History Hx of colonoscopy History of intestinal surgery History of ovarian cystectomy History of salpingectomy Family History Father Alzheimer's dementia Mother Emphysema of lung Social History Are you a primary emergency care attendant to a significant other at home: No Do you presently have visiting nurse or other home services: No Alcohol intake: current Alcohol intake frequency: holidays/special occasions only Patient Tobacco Use Status: Never used Tobacco Cigarette Packs Per Day: 0.5 Years Smoked: 0.5 Current occupational status: retired Current occupation: rt handed Sexual orientation: Straight/Heterosexual Gender identity: Female Female Reproductive History Menstrual Age of Menarche: 10 Physical Exam Vital Signs: BMI result Body Mass Index 23.2 Const General: cooperative, healthy appearing and no acute distress Orientation/consciousness: patient oriented x3 Neuro General: patient oriented x3 Extrem Other: Evaluation of Left Upper Extremity: The patient is alert, oriented, and in no acute distress Median, Ulnar, Radial nerves motor and sensory intact and sensation is normal to the tips of all digits Cap refill brisk Can bring fingers closed to a fist and back out to full extension. She has ~20-30 degrees of hyperextension of the thumb She is most tender to palpation over the basal joint of the left thumb. Positive shoulder sign and positive CMC grind. Not particularly tender over the MCP joint or over the 1st dorsal compartment. Radiographs: 3 views of the left hand, with attention to the thumb, were taken and viewed by me today in clinic today. There is basal joint arthritis with subchondral sclerosis, osteophyte formation, and joint space narrowing. Psych Appearance: grossly normal Affect: normal affect Attitude: cooperative Office Procedures Fracture Care Details: No fracture, injection Fracture Billing Code: Fracture Billing Code Assessment & Plan Assessment & Plan (1) Arthritis of carpometacarpal (CMC) joint of left thumb: Code(s): M18.12 - Unilateral primary osteoarthritis of first carpometacarpal joint, left hand Category: Medical Plan Assessment and plan: 1. Left basal joint osteoarthritis, S/P injections Date of Injections: 11/29/23, 07/26/23, 02/23/23, 10/19/22, 06/22/22, 01/13/22, 09/08/21, 05/05/2021, 10/21/2020 & 06/2020 I educated the patient about this condition We discussed the importance of activity modification. She will continue to wear her neoprene thumb spica splint with daily activity We discussed treatment options. She would like to try another injection today Injection #1 : The risks and benefits of a steroid injection including but not limited to risk of damage to blood vessels, nerve, tendon, infection, skin bleaching, persistent or worsening pain, and failure to improve symptoms were discussed with the patient and they wish to proceed with the steroid injection. Once consent was obtained the skin over the dorsum of the left basal joint was sterilely prepped.? The joint was then injected with a combination of 1 mL of (40 mg/ml} Depo-Medrol and 0.25 % plain Marcaine.? The patient appears to have tolerated the procedure well and with no complications.? She had good relief of her symptoms before leaving clinic today. She may not have another steroid injection for 4 months. Follow-up prn Scribed for Gillian Box MD by Ray Roman, medical receptionist assistant, on 11/29/23 at 2:20 PM, EST. Orders: Orders XR hand LT min 3V Today M79.642 - Pain in left hand Coding Level of Care Code Est Pt Level 3 (67541) Diagnoses Arthritis of carpometacarpal (CMC) joint of left thumb M18.12 CPT Codes Fracture Care - Fracture Billing Code: Fracture Billing Code ([id number])
== END 2023-11-29 14:38 | disposition home or self-care (01) ==
PROVIDERS: Visit Provider Orthopaedic Surgery
DX: M18.12 Unilateral primary osteoarthritis of first carpometacarpal joint, left hand (principal)
CPT/HCPCS: 20600; 99213

== ENCOUNTER 2024-01-03 15:44 | Emergency (ER) | payer MEDICARE, SELFPAY ==
--- NOTE | ~2024-01-03 | XR_ITS ---
Examination: XR tibia fibula LT 2V, XR femur RT 2V Indication: Pain. Ttp over fibula Comparison: No pertinent prior studies are currently available for comparison. Technique: 2 views of the right femur with 2 views of the left tibia and fibula Findings: Right femur: Femoral head is well-seated in the acetabulum. Mild degenerative changes with marginal osteophytosis seen. I do not appreciate any cortical disruption or trabecular irregularity to suggest any acute fracture within the visualized right hip and femur. Mild degenerative changes in the knee with mild loss of joint space in the medial lateral compartments. Surrounding soft tissues grossly unremarkable with scattered phleboliths seen in the pelvis. No significant knee joint effusion. Left tibia and fibula: Bones are normal anatomic alignment with no acute fracture or dislocation seen. No bony destructive lesions or periosteal reaction. Surrounding soft tissues unremarkable. XR/XR tibia fibula LT 2V Impression: Mild degenerative changes but no acute fracture or dislocation seen. No bony destructive lesions or periosteal reaction.
--- NOTE | ~2024-01-03 | XR_ITS ---
Examination: XR tibia fibula LT 2V, XR femur RT 2V Indication: Pain. Ttp over fibula Comparison: No pertinent prior studies are currently available for comparison. Technique: 2 views of the right femur with 2 views of the left tibia and fibula Findings: Right femur: Femoral head is well-seated in the acetabulum. Mild degenerative changes with marginal osteophytosis seen. I do not appreciate any cortical disruption or trabecular irregularity to suggest any acute fracture within the visualized right hip and femur. Mild degenerative changes in the knee with mild loss of joint space in the medial lateral compartments. Surrounding soft tissues grossly unremarkable with scattered phleboliths seen in the pelvis. No significant knee joint effusion. Left tibia and fibula: Bones are normal anatomic alignment with no acute fracture or dislocation seen. No bony destructive lesions or periosteal reaction. Surrounding soft tissues unremarkable. XR/XR femur RT 2V Impression: Mild degenerative changes but no acute fracture or dislocation seen. No bony destructive lesions or periosteal reaction.
--- NOTE | ~2024-01-03 | XR_ITS ---
Examination: XR foot LT 2V, XR foot RT 2V, XR ankle RT min 3V, XR ankle LT min 3V Indication: fall from ladder Comparison: No pertinent prior studies are currently available for comparison. Technique: 2 views of each ankle with 3 views of each foot and lateral views including the foot and ankle Findings: Right ankle: No significant soft tissue swelling. Bones are normal anatomic alignment with no acute fracture or dislocation seen. Ankle mortise appears intact. Left ankle: No significant soft tissue swelling. Bones are normal anatomic alignment with no acute fracture or dislocation seen. Ankle mortise appears intact. Right foot: Degenerative changes in the first MTP joint with mild hallux valgus deformity. No acute fracture or dislocation. No bony destructive lesions or periosteal reaction. No repair foreign body or soft tissue gas. Left foot: Lungs are normal anatomic alignment with no acute fracture or dislocation. No bony destructive lesions or periosteal reaction. Soft tissue unremarkable. XR/XR foot RT 2V Impression: Degenerative changes but no acute fracture or dislocation.
--- NOTE | ~2024-01-03 | XR_ITS ---
Examination: XR thoracic spine 3V, XR lumbar spine 2-3V Indication: Fall Comparison: No pertinent prior studies are currently available for comparison. Technique: 3 views the thoracic spine and 3 views of the lumbar spine Findings: Thoracic spine: Bones are normal anatomic alignment with no acute fracture or spondylolisthesis. Otherwise the vertebral mild wedge shaped compression deformity of the T12 vertebral body of approximately 20% height loss. This is of indeterminate age although had a more normal appearance on the 10/25/2014 chest x-ray. Clinical correlation for point tenderness in this region would be helpful. Otherwise the vertebral body heights and disc heights are preserved. Paravertebral soft tissues grossly unremarkable. Visualized ribs and lung parenchyma unremarkable. Lumbosacral spine: 5 nonrib-bearing lumbar-type vertebra seen. Mild multilevel degenerative changes in the spine with sclerotic degenerative changes the posterior elements of the lumbar spine. No acute fracture or spondylolisthesis. XR/XR lumbar spine 2-3V Impression: Mild wedge-shaped compression deformity of the T12 vertebral body of indeterminate age. Clinical correlation for point tenderness in this region would be recommended
--- NOTE | ~2024-01-03 | XR_ITS ---
Examination: XR foot LT 2V, XR foot RT 2V, XR ankle RT min 3V, XR ankle LT min 3V Indication: fall from ladder Comparison: No pertinent prior studies are currently available for comparison. Technique: 2 views of each ankle with 3 views of each foot and lateral views including the foot and ankle Findings: Right ankle: No significant soft tissue swelling. Bones are normal anatomic alignment with no acute fracture or dislocation seen. Ankle mortise appears intact. Left ankle: No significant soft tissue swelling. Bones are normal anatomic alignment with no acute fracture or dislocation seen. Ankle mortise appears intact. Right foot: Degenerative changes in the first MTP joint with mild hallux valgus deformity. No acute fracture or dislocation. No bony destructive lesions or periosteal reaction. No repair foreign body or soft tissue gas. Left foot: Lungs are normal anatomic alignment with no acute fracture or dislocation. No bony destructive lesions or periosteal reaction. Soft tissue unremarkable. XR/XR ankle RT min 3V Impression: Degenerative changes but no acute fracture or dislocation.
--- NOTE | ~2024-01-03 | CT_ITS ---
EXAMINATION: CT CERVICAL SPINE without contrast CLINICAL INFORMATION: Reason for Exam fall COMPARISON: No prior CT available, TECHNIQUE: Computed axial sagittal and coronal images acquired using department's standard protocol. This CT examination was performed using dose optimization techniques as appropriate, variously including the following: *Automated exposure control *Adjustment of mA and/or kV according to patient size (this includes techniques or standardized protocols for targeted exams where dose is matched to indication/reason for exam; i.e. extremities or head) *Use of iterative reconstruction technique CONTRAST: None DLP: 189 mGy-cm FINDINGS: SKULL BASE: Visualized structures at skull base are normal, Included facial sinuses are clear, CERVICAL VERTEBRAE: Seven cervical vertebrae identified maintaining proper height and alignment, ATLANTOAXIAL AND ATLANTOOCCIPITAL ARTICULATION: Included occipital condyle are properly articulating with C1, measuring of C1 is intact. Proper articulation of the odontoid process with C1. POSTERIOR SPINES and lateral transverse processes: All are intact. DISCS: Narrowing of intervertebral disc spaces and developed small osteophyte from the edges of endplates encroaching on the neural foramen bilaterally at multiple levels. PREVERTEBRAL SOFT TISSUE: Within normal limits, no evidence of prevertebral soft tissue swelling. Visualized portion of the trachea larynx are normal. LUNG APICES: Included lung apices are clear bilaterally. Paravertebral soft tissue including LYMPH NODE AND SALIVARY GLANDS THYROID: Hypodense area in the left thyroid possibly thyroid nodule 1.9 cm for which follow-up thyroid ultrasound recommended. CT/CT cervical spine wo IV con IMPRESSION: 1. No CT evidence of cervical spine fracture. 2. Narrowing of intervertebral disc spaces and developed small osteophyte from the edges of endplates encroaching on the neural foramen bilaterally at multiple levels. 3. Incidental finding was made of possible left thyroid nodule 1.9 cm for which follow-up thyroid ultrasound recommended.
--- NOTE | ~2024-01-03 | XR_ITS ---
Examination: XR thoracic spine 3V, XR lumbar spine 2-3V Indication: Fall Comparison: No pertinent prior studies are currently available for comparison. Technique: 3 views the thoracic spine and 3 views of the lumbar spine Findings: Thoracic spine: Bones are normal anatomic alignment with no acute fracture or spondylolisthesis. Otherwise the vertebral mild wedge shaped compression deformity of the T12 vertebral body of approximately 20% height loss. This is of indeterminate age although had a more normal appearance on the 10/25/2014 chest x-ray. Clinical correlation for point tenderness in this region would be helpful. Otherwise the vertebral body heights and disc heights are preserved. Paravertebral soft tissues grossly unremarkable. Visualized ribs and lung parenchyma unremarkable. Lumbosacral spine: 5 nonrib-bearing lumbar-type vertebra seen. Mild multilevel degenerative changes in the spine with sclerotic degenerative changes the posterior elements of the lumbar spine. No acute fracture or spondylolisthesis. XR/XR thoracic spine 3V Impression: Mild wedge-shaped compression deformity of the T12 vertebral body of indeterminate age. Clinical correlation for point tenderness in this region would be recommended
--- NOTE | ~2024-01-03 | CT_ITS ---
CT head/brain wo IV con CLINICAL INFORMATION: Reason for Exam fall COMPARISON: No prior CT scan available for comparison. TECHNIQUE: Department standard protocol. This CT examination was performed using dose optimization techniques as appropriate, variously including the following: *Automated exposure control *Adjustment of mA and/or kV according to patient size (this includes techniques or standardized protocols for targeted exams where dose is matched to indication/reason for exam; i.e. extremities or head) *Use of iterative reconstruction technique DLP: 787 mGy-cm FINDINGS: CEREBRAL HEMISPHERES: There is no evidence of intra-axial or extra-axial mass, hemorrhage or acute infarct. BRAIN PARENCHYMA: Normal rios-white matter differentiation. SUBDURAL SPACE: No bleed. BASAL GANGLIA AND PINEAL GLAND: Unremarkable VENTRICLES: Symmetric and normal in size. CEREBELLUM AND BRAINSTEM: No space-occupying mass, hemorrhage or acute infarct. CEREBELLOPONTINE ANGLES: No lesion found. ORBITS: No intraorbital mass. VESSELS: Unremarkable SKULL BASE: Unremarkable INCLUDED SINUSES AT SKULL BASE: Clear SKULL AND SKIN: No fracture or bone lesion found. CT/CT head/brain wo IV con IMPRESSION: No CT evidence of intracranial space-occupying mass, bleed or infarct.
--- NOTE | ~2024-01-03 | XR_ITS ---
Examination: XR foot LT 2V, XR foot RT 2V, XR ankle RT min 3V, XR ankle LT min 3V Indication: fall from ladder Comparison: No pertinent prior studies are currently available for comparison. Technique: 2 views of each ankle with 3 views of each foot and lateral views including the foot and ankle Findings: Right ankle: No significant soft tissue swelling. Bones are normal anatomic alignment with no acute fracture or dislocation seen. Ankle mortise appears intact. Left ankle: No significant soft tissue swelling. Bones are normal anatomic alignment with no acute fracture or dislocation seen. Ankle mortise appears intact. Right foot: Degenerative changes in the first MTP joint with mild hallux valgus deformity. No acute fracture or dislocation. No bony destructive lesions or periosteal reaction. No repair foreign body or soft tissue gas. Left foot: Lungs are normal anatomic alignment with no acute fracture or dislocation. No bony destructive lesions or periosteal reaction. Soft tissue unremarkable. XR/XR ankle LT min 3V Impression: Degenerative changes but no acute fracture or dislocation.
--- NOTE | ~2024-01-03 | XR_ITS ---
Examination: XR foot LT 2V, XR foot RT 2V, XR ankle RT min 3V, XR ankle LT min 3V Indication: fall from ladder Comparison: No pertinent prior studies are currently available for comparison. Technique: 2 views of each ankle with 3 views of each foot and lateral views including the foot and ankle Findings: Right ankle: No significant soft tissue swelling. Bones are normal anatomic alignment with no acute fracture or dislocation seen. Ankle mortise appears intact. Left ankle: No significant soft tissue swelling. Bones are normal anatomic alignment with no acute fracture or dislocation seen. Ankle mortise appears intact. Right foot: Degenerative changes in the first MTP joint with mild hallux valgus deformity. No acute fracture or dislocation. No bony destructive lesions or periosteal reaction. No repair foreign body or soft tissue gas. Left foot: Lungs are normal anatomic alignment with no acute fracture or dislocation. No bony destructive lesions or periosteal reaction. Soft tissue unremarkable. XR/XR foot LT 2V Impression: Degenerative changes but no acute fracture or dislocation.
[2024-01-03 16:27] VITALS: BP 148/76; PULSE 77; RESP 16; TEMP 36.6; O2SAT 97; BMI 22.8
--- NOTE | 2024-01-03 16:32 | ED.GENADULT ---
HPI - General Adult General Chief complaint: Fall Stated complaint: fell off a ladder this am, back and shoulder pain Time Seen by Provider: 01/03/24 17:41 Source: patient and family Mode of arrival: ambulatory History of Present Illness ED Provider: Dr Bush HPI narrative: 68-year-old female states that she was approximately 6 ft off the ground on a ladder cleaning the gutters when the ladder became unsteady and she states that she fell straight down landing on her heels which are giving her a significant amount of discomfort, she also describes back pain. Related Data Home Medications ?Medication ?Instructions ?Recorded ?Confirmed nortriptyline 50 mg capsule 50 mg PO BEDTIME 06/09/20 12/28/22 pantoprazole 40 mg granules 40 mg PO DAILY 06/09/20 12/28/22 delayed-release for susp in packet (Protonix) rosuvastatin 5 mg tablet 5 mg PO DAILY 09/08/21 12/28/22 trazodone 50 mg tablet 75 mg PO BEDTIME PRN Sleep 09/08/21 12/28/22 Previous Rx's ?Medication ?Instructions ?Recorded cyclobenzaprine 10 mg tablet 10 mg PO BEDTIME #14 tabs 12/28/22 meloxicam 15 mg tablet 15 mg PO DAILY #14 tabs 12/28/22 Allergies Allergy/AdvReac Type Severity Reaction Status Date / Time Sulfa (Sulfonamide Allergy Unknown SKIN Verified 01/03/24 16:31 Antibiotics) HURTS, [SULFA (SULFONAMIDE nerve ANTIBIOTICS)] pain, skin extremely sensitive, painful yellow jacket bee Allergy Unknown rash Uncoded 11/29/23 13:58 Review of Systems Review of Systems: Pertinent positives and negatives as stated in HPI [facility] Past Medical History Source: nursing notes reviewed Medical History Anxiety Arthritis GERD (gastroesophageal reflux disease) Volvulus History of ectopic Surgical History Hx of colonoscopy History of intestinal surgery History of ovarian cystectomy History of salpingectomy Family History Family History Father Alzheimer's dementia Mother Emphysema of lung Social History Social History Are you a primary child care centre director to a significant other at home: No Do you presently have visiting nurse or other home services: No Alcohol intake: current Alcohol intake frequency: holidays/special occasions only Patient Tobacco Use Status: Never used Tobacco Cigarette Packs Per Day: 0.5 Years Smoked: 0.5 Advance Directives: No Advance Directives Information Provided: No Current occupational status: retired Current occupation: rt handed Sexual orientation: Straight/Heterosexual Gender identity: Female Physical Exam ED Vital Signs: Vital Signs - 24 hr 01/03/24 16:27 01/03/24 20:26 Temperature 97.9 F 97.9 F Pulse Rate 77 77 Respiratory Rate 16 16 Blood Pressure 148/76 H 148/76 H Pulse Oximetry 97 97 Oxygen Delivery Method Room Air Room Air BMI result Body Mass Index 22.8 VITAL SIGNS: Reviewed. GENERAL: Well developed, well nourished, in no acute distress. HEAD: Normocephalic/atraumatic EYES: PERRLA, EOMI EARS: Ext canals without abnormality NOSE: Nares patent bilateral OROPHARYNX: no oral lesions noted, posterior pharynx clear NECK: Supple, no adenopathy, no midline cervical spine tenderness to palpation or step-offs noted LUNGS: Normal breath sounds. No adventitious sounds or accessory muscle use. SpO2<97>; CHEST WALL: No deformity, no tenderness to palpation, no crepitus CARDIOVASCULAR: Regular rate and rhythm without noted murmurs ABDOMEN: Soft, non-tender, non-distended with bowel sounds. PELVIS: No midline vertebral tenderness to palpation or step-offs noted. MUSCULOSKELETAL: No tenderness, deformities, or effusions noted on gross inspection. EXTREMITIES: No cyanosis, clubbing or edema, there is full range of motion symmetrically in all 4 extremities BILATERAL ANKLES: There is noted ecchymosis along the medial aspect of the calcaneus and application force to the plantar surface of the calcaneus elicits pain in the patient LEFT LOWER EXTREMITY: There is tenderness to palpation over the proximal fibular head without noted deformity or crepitus RIGHT LOWER EXTREMITY: There is tenderness to palpation over the mid femur without obvious contusion/deformity SKIN: Inspection of the skin reveals no rashes NEUROLOGIC: Alert and oriented x 4. Strength and sensation to light touch were grossly intact x 4. Course Course Course Narrative: RME: RME done by EMELINA Navarro. Patient presents to ED for posterior headache neck pain, upper back pain, low back pain, and bilateral foot pain after falling off a ladder. Patient states she was 6 ft high and she fell and landed straight onto her bilateral feet and upright position and then she fell back onto her back. witnessed fall. Patient denies falling to the ground 1st landing on her free standing up position and then falling back onto her back. Patient denies any nausea, vomiting, or dizziness. Patient not in any blood thinners. Physical exam positive for bilateral cervical spine tenderness, thoracic lumbar spine tenderness, and also bilateral heel tenderness. X-rays CT scan ordered Medications Administered Discontinued Medications Generic Name Dose Route Start Last Admin Trade Name Freq PRN Reason Stop Dose Admin Acetaminophen 975 mg 01/03/24 19:38 01/03/24 20:03 Acetaminophen 325 Mg Tablet PO 01/03/24 19:39 975 mg ONCE ONE Administration Ibuprofen 400 mg 01/03/24 19:38 01/03/24 20:03 Ibuprofen 400 Mg Tablet PO 01/03/24 19:39 400 mg ONCE ONE Administration Lidocaine 1 patch 01/03/24 19:38 01/03/24 20:02 Lidocaine 4 % Patch Adh..Patch TRANSDERMA 01/03/24 19:39 1 patch ONCE ONE Administration Protocol Medical Decision Making Medical Decision Making MDM Narrative: This is a 68-year-old female with history and clinical presentation, most concerning for possible calcaneal fractures or spinal fracture, possible left fibular fracture or right femur fracture. Review of all imaging studies do not demonstrate any acute bony pathology other than a wedge compression deformity at the T12 of indeterminate age. CT of the head negative for intracranial hemorrhage or mass effect, CT of cervical spine without evidence of fracture or subluxation. Patient provided with combination analgesics and will evaluate whether or not patient can stand. Although patient is feeling somewhat stiff she is able to sit up and stand without difficulty, she understands all of the results and findings and understands the follow-up that will need to be done should she have persistent pain. Differential Diagnosis Differential Diagnoses: The differential diagnosis associated with the presentation includes Please see the discussion above Admission/Observation Consideration of admission/observation: Escalation of care including admission/observation considered Please see the discussion above Radiology Impression Discussion of test interpretation with radiology: I have reviewed the radiologist's reading. Radiologist Impression: Please see the discussion above Critical Care Time Critical Care Time Critical Care Time: Yes Total Critical Care Time: 45 Attestation: I personally attest to this time spent taking care of the patient. Discharge Plan Discharge Clinical Impression: Accidental fall from ladder, Contusion of soft tissue, Musculoskeletal pain, T12 compression fracture Patient Disposition: Home, Self-Care Instructions: Vertebral Compression Fracture (ED), Musculoskeletal Pain (ED) Additional Instructions: 1. Tylenol 1000 mg, orally, every 6 hours as needed for pain control. Do not exceed 4000 mg within 24 hours. 2. Ibuprofen 400 mg, orally with milk or food, every 6 hours as needed for pain control. You may take this medication with the Tylenol for improved symptom relief. 3. Lidocaine patch, apply to area of maximal tenderness as directed on the outside packaging. 4. If you have persistent pain somewhere please follow-up with your primary care doctor as you may need repeat x-rays. Return to the emergency room for any concerning symptoms. Prescriptions: No Action meloxicam 15 mg tablet 15 mg PO DAILY Qty: 14 0RF cyclobenzaprine 10 mg tablet 10 mg PO BEDTIME Qty: 14 0RF nortriptyline 50 mg capsule 50 mg PO BEDTIME pantoprazole [Protonix] [address] for susp in packet 40 mg PO DAILY trazodone 50 mg tablet 75 mg PO BEDTIME PRN (Reason: Sleep) rosuvastatin 5 mg tablet 5 mg PO DAILY Referrals: Bhupinder Brock DO [Primary Care Provider] - Interventions: ED Discharge Assessment Last Done: 01/03/24 20:26 Discharge Date/Time: 01/03/24 20:28 Print Language: Chinese
[2024-01-03] MEDS: Lidocaine 4 % Patch ADH..PATCH 1 PATCH TRANSDERMA (20:02)
[2024-01-03] MEDS: Ibuprofen 400 MG TABLET PO (20:03)
[2024-01-03] MEDS: Acetaminophen 325 MG TABLET 975 MG PO (20:03)
[2024-01-03 20:26] VITALS: BP 148/76; PULSE 77; RESP 16; TEMP 36.6; O2SAT 97
== END 2024-01-03 20:28 | disposition home or self-care (01) ==
PROVIDERS: Emergency Provider Student in an Organized Health Care Education/Training Program; PCP Internal Medicine
DX: S22.080A Wedge compression fracture of T11-T12 vertebra, initial encounter for closed fracture (principal); S90.32XA Contusion of left foot, initial encounter; S90.31XA Contusion of right foot, initial encounter; W11.XXXA Fall on and from ladder, initial encounter; M79.18 Myalgia, other site; M79.672 Pain in left foot; M79.671 Pain in right foot; M54.2 Cervicalgia; M54.6 Pain in thoracic spine; M54.50 Low back pain, unspecified; R51.9 Headache, unspecified; Z79.02 Long term (current) use of antithrombotics/antiplatelets; Z79.899 Other long term (current) drug therapy; Y93.E9 Activity, other interior property and clothing maintenance; Y92.018 Other place in single-family (private) house as the place of occurrence of the external cause; Y99.9 Unspecified external cause status
CPT/HCPCS: 70450; 72072; 72100; 72125; 73552; 73590; 73610; 73620; 99283; 99284

== ENCOUNTER 2024-03-20 09:25 | Outpatient (AMB) | payer MEDICARE, SELFPAY ==
--- OUTSIDE RECORDS SUMMARY | 2024-03-20 09:26 | XMS_ITS | Continuity of Care Document ---
Author Organization [facility] Address [address] [address]- Care Team Providers Care Candle Pourer Name Role Phone Bhupinder Brock DO Primary Care Physician [phone] Encounter [facility] [place] Date(s): 05/18/23 - 08/06/23 [facility] [address] [address]- Attending Physician: Narayan Kellogg MD Admitting Physician: Narayan Kellogg MD Referring Physician: Bhupinder Brock DO Allergies, Adverse Reactions, Alerts Substance Reaction Severity Status sulfa drugs Active Xanax suicidal thoughts Active Medications aripiprazole 15 mg oral tablet By Mouth, Daily, 0 Refills, Maintenance, Tablet Start Date: 03/22/13 Status: Ordered divalproex sodium 250 mg oral enteric coated tablet By Mouth, 2 times a day, 0 Refills, Maintenance, Tablet Start Date: 03/22/13 Status: Ordered folic acid 1 mg oral tablet By Mouth, Daily, 0 Refills, Maintenance, Tablet Start Date: 03/22/13 Status: Ordered Multivitamin Tablet 1 tablet, By Mouth, Daily, 0 Refills, Maintenance, Tablet Start Date: 03/22/13 Status: Ordered Protonix 40 mg oral delayed release tablet 1 tablet = 40 mg, By Mouth, Daily, # 30 tablet, 0 Refills, Maintenance, EC Tablet Start Date: 03/22/13 Status: Ordered quetiapine 25 mg oral tablet By Mouth, 3 times a day, PRN Agitation, 0 Refills, Maintenance, Tablet Start Date: 03/22/13 Status: Ordered thiamine 100 mg oral tablet By Mouth, 2 times a day, 0 Refills, Maintenance, Tablet Start Date: 03/22/13 Status: Ordered Patient Care team information Care Team Personnel Name: Bhupinder Brock DO Position: Reference Physician Member Role: PCP Address: Address: [address] [place] [address] [place] [address]- Care Team Related Persons Name: VETO ALVAREZ Name: JASMIN ALVAREZ Address: home [address] [place] [address]
--- OUTSIDE RECORDS SUMMARY | 2024-03-20 09:26 | XMS_ITS | Continuity of Care Document ---
Author Organization [facility] Address [address] [address]- Care Team Providers Care Processing Operator Name Role Phone Bhupinder Brock DO Primary Care Physician [phone] Encounter [facility] [place] Date(s): 05/30/23 - 06/29/23 [facility] [address] [address]- Allergies, Adverse Reactions, Alerts Substance Reaction Severity [...] Reference Physician Member Role: PCP Address: Address: [address] [place] [address] [place] [address]- Care Team Related Persons Name: VETO ALVAREZ Name: JASMIN ALVAREZ Address: home [address] [place] [address]
--- OUTSIDE RECORDS SUMMARY | 2024-03-20 09:27 | XMS_ITS ---
Author Organization Bhupinder Brock DO, [facility] Address [address] [place], [place] [id number] Care Team Providers Care Client Service Consultant Name Role Phone Bhupinder Brock Primary Care Provider REASON FOR VISIT FYI only Encounters Encounter Location Date Provider Diagnosis Bhupinder Brock DO, FACP [address] [place] [id number] 01/16/2024 Bhupinder Brock PLAN OF TREATMENT No Information
--- OUTSIDE RECORDS SUMMARY | 2024-03-20 09:27 | XMS_ITS ---
Author Organization Bhupinder Brock DO, [facility] Address [address] [place], [place] [id number] Care Team Providers Care Security System Technician Name Role Phone Bhupinder Brock Primary Care Provider REASON FOR VISIT Message MEDICATIONS Medication SIG (Take, Route, Frequency, Duration) Notes Start Date End Date Status Doxycycline Hyclate 100 MG 1 tablet Oral ly Twice a day for 7 days 02/24/2024 Active Encounters Encounter Location Date Provider Diagnosis Bhupinder Brock DO, FACP [address] [place] [id number] 02/24/2024 Bhupinder Brock PLAN OF TREATMENT Medication Medication Name Sig Start Date Stop Date Notes Doxycycline Hyclate 100 MG 1 tablet Oral ly Twice a day for 7 days 02/24/2024
--- OUTSIDE RECORDS SUMMARY | 2024-03-20 09:27 | XMS_ITS ---
Author Organization Bhupinder Brock DO, FACP Address [address] [place], [place] [id number] Care Team Providers Care [place]. Senator Name Role Phone Bhupinder Brock Primary Care Provider ALLERGIES Allergen (clinical drug ingredient) Drug/Non Drug Allergy documented on EMR Reaction Allergy Type Onset Date Status Sulfamethoxazole nerve pain Drug Allergy Active REASON FOR VISIT HDF, follow-up after Emergency Room visit MEDICATIONS Medication SIG (Take, Route, Frequency, Duration) Notes Start Date End Date Status traZODone HCl 50 MG 2 tablets at bedtime Orally Once a day Active Nortriptyline HCl 75 MG 1 capsule at bed time Orally Once a day Active Celecoxib 200 MG 1 capsule with food as needed Orally Twice a day for 15 days 01/06/2024 Active Pantoprazole Sodium 40 MG 1 tablet Orall y Once a day Active Vitamin D (Cholecalciferol) 50 MCG (1999 UT) 1 capsule Orally Once a day 11/18/2020 Active Rosuvastatin Calcium 5 MG 1 tablet Orall y Once a day Active SOCIAL HISTORY Tobacco Use: Social History Observation Description Date Details (start date - stop date) Never Smoker NA - NA Sex Assigned At : Social History Observation Description Sex Assigned At Unknown Tobacco Use/Smoking Question Answer Notes Patient is a nonsmoker Additional Findings: Tobacco Non-User Cu rrent non-smoker, currently using no form of tobacco Alcohol Screen Question Answer Notes Did you have a drink contain ing alcohol in the past year? Yes How often did you have a dri nk containing alcohol in the past year? 2 to 3 times a week (3 points) How many drinks did you have on a typical day when you were drinking in the past year? 1 or 2 drinks (0 point) How often did you have 6 or more drinks on one occasion in the past year? Never (0 point) Points 3 Interpretation Positive Encounters Encounter Location Date Provider Diagnosis Bhupinder Brock DO, [address] [phone] 01/06/2024 Bhupinder Brock Acute midline thoracic back pain M54.6 ASSESSMENTS Encounter Date Diagnosis Assessment Notes Treatment Notes Treatment Clinical Notes 01/06/2024 Acute midline thoracic back pain (ICD-10 - M54.6) Continue acetaminophen, lidocaine cream, ice to the area PLAN OF TREATMENT Medication Medication Name Sig Start Date Stop Date Notes Celecoxib 200 MG 1 capsule with food as needed Orally Twice a day for 15 days 01/06/2024 Treatment Notes Assessment Notes Acute midline thoracic back pain Continu e acetaminophen, lidocaine cream, ice to the area Progress Notes * Examination Category Sub-Category Detail Notes General Examination PSYCH: alert, orien himanshu, cognitive function intact History and Physical Notes * HPI (History of Present Illness) Category Sub-Category Detail Notes New symptom(s) Telehealth Location of provider:: Pro reginar's home address Location of patient:: Address listed in demographics for today's visit Patient identification confirmed using:: Name, Telehealth method:: Telephone only. Janie ent not visible to care provider. Consent:: Patient verbally c onsented to treatment, Patient verbally consented to billing insurance company, Patient informed of any privacy concerns related to method of visit Total time spent with patient (mins): 22 Disclaimer: This Telehealth visit is being conducted per CDC recommendations due to the COVID-19 outbreak.
--- OUTSIDE RECORDS SUMMARY | 2024-03-20 09:27 | XMS_ITS | Continuity of Care Document ---
Author Organization [facility] Address [address] [address]- Care Team Providers Care Loading Machine Operator Name Role Phone Bhupinder Brock DO Primary Care Physician [phone] Encounter [facility] [place] Date(s): 05/18/23 - 06/17/23 [facility] [address] [address]- Allergies, Adverse Reactions, Alerts Substance Reaction Severity [...] Reference Physician Member Role: PCP Address: Address: [address] [place] [address] [place] [address]- Care Team Related Persons Name: VETO ALVAREZ Name: JASMIN ALVAREZ Address: home [address] [place] [address]
--- OUTSIDE RECORDS SUMMARY | 2024-03-20 09:28 | XMS_ITS | Patient Health Record ---
Author Organization Bhupinder Brock DO, FACP Address [address], [place] [id number] Care Team Providers Care Delinquency Prevention Social Worker Name Role Phone Bhupinder Brock Primary Care Provider [phone] ALLERGIES Allergen (clinical drug ingredient) Drug/Non Drug Allergy documented on EMR Reaction Allergy Type Onset Date Status Sulfamethoxazole nerve pain Drug Allergy Active RESULTS Component Value Reference Range Notes Electrocardiogram (EKG) - IH Reviewed date:05/17/2023 05:00:33 PM Interpretation:NSR, normal EKG Performing Lab: Notes/Report: NSR, normal EKG MM tomosynthesis screening B I Reviewed date:10/03/2023 12:50:49 PM Interpretation:Negative Performing Lab: Notes/Report: [place] [address] [place] [address] Mammography Report Signed Patient: Demetra Gamble MR#: [id number] : 1955 Acct:[id number] Age/Sex: 68 / F ADM Date: 09/28/23 Loc: HO.MAMMO Attending Dr: Bhupinder Brock DO Ordering Physician: Bhupinder Brock DO Results: 1Negat marie Date of Service: 09/28/23 Follow Up: 1 Year From [facility] Mammogram Procedure(s): MM tomosynthesis screening BI Accession Number(s): [id number] cc: Bhupinder Brock DO EXAMINATION: MM SCREENING DIGITAL BREAST TOMOSYNTHESIS, BILATERAL CLINICAL INFORMATION: Screening. Asymptomatic. COMPARISON: Mammography: This study is compared with prior exams dating back to 2019. TECHNIQUE: Digital breast tomosynthesis is performed in both the craniocaudal and mediolateral oblique views along with computer-aided detection (CAD). Synthesized 2D images are generated from the tomosynthesis. FINDINGS: The breasts are extremely dense, which lowers the sensitivity of mammography (ACR BI-RADS breast composition Category d). There are no significant masses, abnormal calcifications, or other abnormalities. MM/MM tomosynthesis screening BI IMPRESSION: No mammographic evidence of malignancy. ASSESSMENT: BI-RADS BI-RADS 1 - Negative RECOMMENDATION: Routine annual mammography screening. 1 year F/U This examination should not preclude the clinical evaluation of a suspicious palpable abnormality. This patient's information was entered into a reminder system with a target due date for their next mammogram. Dictated By: Anel Tapia MD Signed By: <Electronically signed by Anel Tapia MD in OV> 10/03/23 0559 DD/ 1402 TD/TT: Process Engineering Intern: CT cervical spine wo con Reviewed date:01/03/2024 06:33:39 PM Interpretation:Abnormal Performing Lab: Notes/Report: [address] [address] [address] Scan Report Signed Patient: Demetra Gamble MR#: [id number] : 1955 Acct:[id number] Age/Sex: 68 / F ADM Date: 01/03/24 Loc: .ED Attending Dr: Ordering Physician: Grzegorz Matos Date of Service: 01/03/24 Procedure(s): CT cervical spine wo IV con Accession Number(s): [id number] cc: Grzegorz Matos; Bhupinder Brock DO EXAMINATION: CT CERVICAL SPINE without contrast CLINICAL INFORMATION: Reason for Exam fall COMPARISON: No prior CT available, TECHNIQUE: Computed axial sagittal and coronal images acquired using department's standard protocol. This CT examination was performed using dose optimization techniques as appropriate, variously including the following: *Automated exposure control *Adjustment of mA and/or kV according to patient size (this includes techniques or standardized protocols for targeted exams where dose is matched to indication/reason for exam; i.e. extremities or head) *Use of iterative reconstruction technique CONTRAST: None DLP: 189 mGy-cm FINDINGS: SKULL BASE: Visualized structures at skull base are normal, Included facial sinuses are clear, CERVICAL VERTEBRAE: Seven cervical vertebrae identified maintaining proper height and alignment, ATLANTOAXIAL AND ATLANTOOCCIPITAL ARTICULATION: Included occipital condyle are properly articulating with C1, measuring of C1 is intact. Proper articulation of the odontoid process with C1. POSTERIOR SPINES and lateral transverse processes: All are intact. DISCS: Narrowing of intervertebral disc spaces and developed small osteophyte from the edges of endplates encroaching on the neural foramen bilaterally at multiple levels. PREVERTEBRAL SOFT TISSUE: Within normal limits, no evidence of prevertebral soft tissue swelling. Visualized portion of the trachea larynx are normal. LUNG APICES: Included lung apices are clear bilaterally. Paravertebral soft tissue including LYMPH NODE AND SALIVARY GLANDS THYROID: Hypodense area in the left thyroid possibly thyroid nodule 1.9 cm for which follow-up thyroid ultrasound recommended. CT/CT cervical spine wo IV con IMPRESSION: 1. No CT evidence of cervical spine fracture. 2. Narrowing of intervertebral disc spaces and developed small osteophyte from the edges of endplates encroaching on the neural foramen bilaterally at multiple levels. 3. Incidental finding was made of possible left thyroid nodule 1.9 cm for which follow-up thyroid ultrasound recommended. Dictated By: Cherie Toribio MD Signed By: <Electronically signed by Cherie Toribio MD in OV> 01/03/24 1806 DD/ 1657 TD/TT: Process Engineering Intern: ALEKSANDAR CT head/brain wo con Reviewed date:01/03/2024 06:37:30 PM Interpretation:Normal Performing Lab: Notes/Report: [address] [address] [address] Scan Report Signed Patient: Demetra Gamble MR#: [id number] : 1955 Acct:[id number] Age/Sex: 68 / F ADM Date: 01/03/24 Loc: HO.ED Attending Dr: Ordering Physician: Grzegorz Matos Date of Service: 01/03/24 Procedure(s): CT head/brain wo IV con Accession Number(s): [id number] cc: Grzegorz Matos; Bhupinder Brock DO CT head/brain wo IV con CLINICAL INFORMATION: Reason for Exam fall COMPARISON: No prior CT scan available for comparison. TECHNIQUE: Department standard protocol. This CT examination was performed using dose optimization techniques as appropriate, variously including the following: *Automated exposure control *Adjustment of mA and/or kV according to patient size (this includes techniques or standardized protocols for targeted exams where dose is matched to indication/reason for exam; i.e. extremities or head) *Use of iterative reconstruction technique DLP: 787 mGy-cm FINDINGS: CEREBRAL HEMISPHERES: There is no evidence of intra-axial or extra-axial mass, hemorrhage or acute infarct. BRAIN PARENCHYMA: Normal rios-white matter differentiation. SUBDURAL SPACE: No bleed. BASAL GANGLIA AND PINEAL GLAND: Unremarkable VENTRICLES: Symmetric and normal in size. CEREBELLUM AND BRAINSTEM: No space-occupying mass, hemorrhage or acute infarct. CEREBELLOPONTINE ANGLES: No lesion found. ORBITS: No intraorbital mass. VESSELS: Unremarkable SKULL BASE: Unremarkable INCLUDED SINUSES AT SKULL BASE: Clear SKULL AND SKIN: No fracture or bone lesion found. CT/CT head/brain wo IV con IMPRESSION: No CT evidence of intracranial space-occupying mass, bleed or infarct. Dictated By: Cherie Toribio MD Signed By: <Electronically signed by Cherie Toribio MD in OV> 01/03/24 1755 DD/ 1657 TD/TT: Process Engineering Intern: ALEKSANDAR XR ankle RT min 3V Reviewed date:01/03/2024 06:25:39 PM Interpretation:Normal Performing Lab: Notes/Report: [address] [address] XRay Report Signed Patient: Demetra Gamble MR#: [id number] : 1955 Acct:[id number] Age/Sex: 68 / F ADM Date: 01/03/24 Loc: HO.ED Attending Dr: Ordering Physician: Grzegorz Matos Date of Service: 01/03/24 Procedure(s): XR ankle RT min 3V Accession Number(s): [id number] cc: Grzegroz Matos; Bhupinder Brock DO Examination: XR foot LT 2V, XR foot RT 2V, XR ankle RT min 3V, XR ankle LT min 3V Indication: fall from ladder Comparison: No pertinent prior studies are currently available for comparison. Technique: 2 views of each ankle with 3 views of each foot and lateral views including the foot and ankle Findings: Right ankle: No significant soft tissue swelling. Bones are normal anatomic alignment with no acute fracture or dislocation seen. Ankle mortise appears intact. Left ankle: No significant soft tissue swelling. Bones are normal anatomic alignment with no acute fracture or dislocation seen. Ankle mortise appears intact. Right foot: Degenerative changes in the first MTP joint with mild hallux valgus deformity. No acute fracture or dislocation. No bony destructive lesions or periosteal reaction. No repair foreign body or soft tissue gas. Left foot: Lungs are normal anatomic alignment with no acute fracture or dislocation. No bony destructive lesions or periosteal reaction. Soft tissue unremarkable. XR/XR ankle RT min 3V Impression: Degenerative changes but no acute fracture or dislocation. Dictated By: Pedro Huynh MD Signed By: <Electronically signed by Pedro Huynh MD in OV> 01/03/24 1801 DD/ 1706 TD/TT: Process Engineering Intern: JOAQUINA XR ankle LT min 3V Reviewed date:01/03/2024 06:27:23 PM Interpretation:Normal Performing Lab: Notes/Report: [address] [address] XRay Report Signed Patient: Demetra Gamble MR#: [id number] : 1955 Acct:[id number] Age/Sex: 68 / F ADM Date: 01/03/24 Loc: HO.ED Attending Dr: Ordering Physician: Grzegorz Matos Date of Service: 01/03/24 Procedure(s): XR ankle LT min 3V Accession Number(s): [id number] cc: Grzegorz Matos; Bhupinder Brock DO Examination: XR foot LT 2V, XR foot RT 2V, XR ankle RT min 3V, XR ankle LT min 3V Indication: fall from ladder Comparison: No pertinent prior studies are currently available for comparison. Technique: 2 views of each ankle with 3 views of each foot and lateral views including the foot and ankle Findings: Right ankle: No significant soft tissue swelling. Bones are normal anatomic alignment with no acute fracture or dislocation seen. Ankle mortise appears intact. Left ankle: No significant soft tissue swelling. Bones are normal anatomic alignment with no acute fracture or dislocation seen. Ankle mortise appears intact. Right foot: Degenerative changes in the first MTP joint with mild hallux valgus deformity. No acute fracture or dislocation. No bony destructive lesions or periosteal reaction. No repair foreign body or soft tissue gas. Left foot: Lungs are normal anatomic alignment with no acute fracture or dislocation. No bony destructive lesions or periosteal reaction. Soft tissue unremarkable. XR/XR ankle LT min 3V Impression: Degenerative changes but no acute fracture or dislocation. Dictated By: Pedro Huynh MD Signed By: <Electronically signed by Pedro Huynh MD in OV> 01/03/24 1801 DD/ 1706 TD/TT: Process Engineering Intern: JOAQUINA XR tibia fibula LT 2V Reviewed date:01/04/2024 06:39:11 PM Interpretation:Normal Performing Lab: Notes/Report: [address] [address] XRay Report Signed Patient: Demetra Gamble MR#: [id number] : 1955 Acct:[id number] Age/Sex: 68 / F ADM Date: 01/03/24 Loc: HO.ED Attending Dr: Ordering Physician: Kenyatta Bush MD Date of Service: 01/03/24 Procedure(s): XR tibia fibula LT 2V Accession Number(s): [id number] cc: Kenyatta Bush MD; Bhupinder Brock DO Examination: XR tibia fibula LT 2V, XR femur RT 2V Indication: Pain. Ttp over fibula Comparison: No pertinent prior studies are currently available for comparison. Technique: 2 views of the right femur with 2 views of the left tibia and fibula Findings: Right femur: Femoral head is well-seated in the acetabulum. Mild degenerative changes with marginal osteophytosis seen. I do not appreciate any cortical disruption or trabecular irregularity to suggest any acute fracture within the visualized right hip and femur. Mild degenerative changes in the knee with mild loss of joint space in the medial lateral compartments. Surrounding soft tissues grossly unremarkable with scattered phleboliths seen in the pelvis. No significant knee joint effusion. Left tibia and fibula: Bones are normal anatomic alignment with no acute fracture or dislocation seen. No bony destructive lesions or periosteal reaction. Surrounding soft tissues unremarkable. XR/XR tibia fibula LT 2V Impression: Mild degenerative changes but no acute fracture or dislocation seen. No bony destructive lesions or periosteal reaction. Dictated By: Pedro Huynh MD Signed By: <Electronically signed by Pedro Huynh MD in OV> 01/03/241922 DD/ 29 TD/TT: Process Engineering Intern: JOAQUINA XR thoracic spine 3V Reviewed date:01/03/2024 06:30:26 PM Interpretation:Abnormal Performing Lab: Notes/Report: [address] [address] XRay Report Signed Patient: Demetra Gamble MR#: [id number] : 1955 Acct:[id number] Age/Sex: 68 / F ADM Date: 01/03/24 Loc: HO.ED Attending Dr: Ordering Physician: Grzegorz Matos Date of Service: 01/03/24 Procedure(s): XR thoracic spine 3V Accession Number(s): [id number] cc: Grzegorz Matos; Bhupinder Brock DO Examination: XR thoracic spine 3V, XR lumbar spine 2-3V Indication: Fall Comparison: No pertinent prior studies are currently available for comparison. Technique: 3 views the thoracic spine and 3 views of the lumbar spine Findings: Thoracic spine: Bones are normal anatomic alignment with no acute fracture or spondylolisthesis. Otherwise the vertebral mild wedge shaped compression deformity of the T12 vertebral body of approximately 20% height loss. This is of indeterminate age although had a more normal appearance on the 10/25/2014 chest x-ray. Clinical correlation for point tenderness in this region would be helpful. Otherwise the vertebral body heights and disc heights are preserved. Paravertebral soft tissues grossly unremarkable. Visualized ribs and lung parenchyma unremarkable. Lumbosacral spine: 5 nonrib-bearing lumbar-type vertebra seen. Mild multilevel degenerative changes in the spine with sclerotic degenerative changes the posterior elements of the lumbar spine. No acute fracture or spondylolisthesis. XR/XR thoracic spine 3V Impression: Mild wedge-shaped compression deformity of the T12 vertebral body of indeterminate age. Clinical correlation for point tenderness in this region would be recommended Dictated By: Pedro Huynh MD Signed By: <Electronically signed by Pedro Huynh MD in OV> 01/03/24 1805 DD/ 1706 TD/TT: Process Engineering Intern: JOAQUINA XR femur RT 2V Reviewed date:01/04/2024 06:36:22 PM Interpretation:Abnormal Performing Lab: Notes/Report: [address] [address] XRay Report Signed Patient: Demetra Gamble MR#: [id number] : 1955 Acct:[id number] Age/Sex: 68 / F ADM Date: 01/03/24 Loc: HO.ED Attending Dr: Ordering Physician: Kenyatta Bush MD Date of Service: 01/03/24 Procedure(s): XR femur RT 2V Accession Number(s): [id number] cc: Kenyatta Bush MD; Bhupinder Brock DO Examination: XR tibia fibula LT 2V, XR femur RT 2V Indication: Pain. Ttp over fibula Comparison: No pertinent prior studies are currently available for comparison. Technique: 2 views of the right femur with 2 views of the left tibia and fibula Findings: Right femur: Femoral head is well-seated in the acetabulum. Mild degenerative changes with marginal osteophytosis seen. I do not appreciate any cortical disruption or trabecular irregularity to suggest any acute fracture within the visualized right hip and femur. Mild degenerative changes in the knee with mild loss of joint space in the medial lateral compartments. Surrounding soft tissues grossly unremarkable with scattered phleboliths seen in the pelvis. No significant knee joint effusion. Left tibia and fibula: Bones are normal anatomic alignment with no acute fracture or dislocation seen. No bony destructive lesions or periosteal reaction. Surrounding soft tissues unremarkable. XR/XR femur RT 2V Impression: Mild degenerative changes but no acute fracture or dislocation seen. No bony destructive lesions or periosteal reaction. Dictated By: Pedro Huynh MD Signed By: <Electronically signed by Pedro Huynh MD in OV> 01/03/24 1923 DD/ 1830 TD/TT: Process Engineering Intern: JOAQUINA XR lumbar spine 2-3V Reviewed date:01/03/2024 06:29:53 PM Interpretation:Abnormal Performing Lab: Notes/Report: [address] [address] XRay Report Signed Patient: Demetra Gamble MR#: [id number] : 1955 Acct:[id number] Age/Sex: 68 / F ADM Date: 01/03/24 Loc: HO.ED Attending Dr: Ordering Physician: Grzegorz Matos Date of Service: 01/03/24 Procedure(s): XR lumbar spine 2-3V Accession Number(s): [id number] cc: Grzegorz Matos; Bhupinder Brock DO Examination: XR thoracic spine 3V, XR lumbar spine 2-3V Indication: Fall Comparison: No pertinent prior studies are currently available for comparison. Technique: 3 views the thoracic spine and 3 views of the lumbar spine Findings: Thoracic spine: Bones are normal anatomic alignment with no acute fracture or spondylolisthesis. Otherwise the vertebral mild wedge shaped compression deformity of the T12 vertebral body of approximately 20% height loss. This is of indeterminate age although had a more normal appearance on the 10/25/2014 chest x-ray. Clinical correlation for point tenderness in this region would be helpful. Otherwise the vertebral body heights and disc heights are preserved. Paravertebral soft tissues grossly unremarkable. Visualized ribs and lung parenchyma unremarkable. Lumbosacral spine: 5 nonrib-bearing lumbar-type vertebra seen. Mild multilevel degenerative changes in the spine with sclerotic degenerative changes the posterior elements of the lumbar spine. No acute fracture or spondylolisthesis. XR/XR lumbar spine 2-3V Impression: Mild wedge-shaped compression deformity of the T12 vertebral body of indeterminate age. Clinical correlation for point tenderness in this region would be recommended Dictated By: Pedro Huynh MD Signed By: <Electronically signed by Pedro Huynh MD in OV> 01/03/24 1805 DD/ 1706 TD/TT: Process Engineering Intern: JOAQUINA LARA foot RT 2V Reviewed date:01/03/2024 06:28:35 PM Interpretation:Abnormal Performing Lab: Notes/Report: [address] [address] XRay Report Signed Patient: Demetra Gamble MR#: [id number] : 1955 Acct:[id number] Age/Sex: 68 / F ADM Date: 01/03/24 Loc: HO.ED Attending Dr: Ordering Physician: Grzegorz Matos Date of Service: 01/03/24 Procedure(s): XR foot RT 2V Accession Number(s): [id number] cc: Grzegorz Matos; Bhupinder Brock DO Examination: XR foot LT 2V, XR foot RT 2V, XR ankle RT min 3V, XR ankle LT min 3V Indication: fall from ladder Comparison: No pertinent prior studies are currently available for comparison. Technique: 2 views of each ankle with 3 views of each foot and lateral views including the foot and ankle Findings: Right ankle: No significant soft tissue swelling. Bones are normal anatomic alignment with no acute fracture or dislocation seen. Ankle mortise appears intact. Left ankle: No significant soft tissue swelling. Bones are normal anatomic alignment with no acute fracture or dislocation seen. Ankle mortise appears intact. Right foot: Degenerative changes in the first MTP joint with mild hallux valgus deformity. No acute fracture or dislocation. No bony destructive lesions or periosteal reaction. No repair foreign body or soft tissue gas. Left foot: Lungs are normal anatomic alignment with no acute fracture or dislocation. No bony destructive lesions or periosteal reaction. Soft tissue unremarkable. XR/XR foot RT 2V Impression: Degenerative changes but no acute fracture or dislocation. Dictated By: Pedro Huynh MD Signed By: <Electronically signed by Pedro Huynh MD in OV> 01/03/24 1801 DD/ 1706 TD/TT: Process Engineering Intern: JOAQUINA XR foot LT 2V Reviewed date:01/03/2024 06:31:10 PM Interpretation:Normal Performing Lab: Notes/Report: [address] [address] XRay Report Signed Patient: Demetra Gamble MR#: [id number] : 1955 Acct:[id number] Age/Sex: 68 / F ADM Date: 01/03/24 Loc: HO.ED Attending Dr: Ordering Physician: Grzegorz Matos Date of Service: 01/03/24 Procedure(s): XR foot LT 2V Accession Number(s): [id number] cc: Grzegorz Matos; Bhupinder Brock DO Examination: XR foot LT 2V, XR foot RT 2V, XR ankle RT min 3V, XR ankle LT min 3V Indication: fall from ladder Comparison: No pertinent prior studies are currently available for comparison. Technique: 2 views of each ankle with 3 views of each foot and lateral views including the foot and ankle Findings: Right ankle: No significant soft tissue swelling. Bones are normal anatomic alignment with no acute fracture or dislocation seen. Ankle mortise appears intact. Left ankle: No significant soft tissue swelling. Bones are normal anatomic alignment with no acute fracture or dislocation seen. Ankle mortise appears intact. Right foot: Degenerative changes in the first MTP joint with mild hallux valgus deformity. No acute fracture or dislocation. No bony destructive lesions or periosteal reaction. No repair foreign body or soft tissue gas. Left foot: Lungs are normal anatomic alignment with no acute fracture or dislocation. No bony destructive lesions or periosteal reaction. Soft tissue unremarkable. XR/XR foot LT 2V Impression: Degenerative changes but no acute fracture or dislocation. Dictated By: Pedro Huynh MD Signed By: <Electronically signed by Pedro Huynh MD in OV> 01/03/24 1801 DD/ 1706 TD/TT: Process Engineering Intern: JOAQUINA REASON FOR REFERRAL Reason Palpitations Diagnosis 1 Palpitations (R00.2) Referral Organization Bhupinder Alejandro, [facility] Referring Provider First Name Bhupinder Referring Provider Last Name Delmy Referring Provider Speciality Internal M edicine Referred Provider Specialty Cardiology General Notes JennGiuliana 05/18/20 23 10:16:45 AM > Referral and notes faxed to [phone] Referral Priority Routine Referral Appointment Date 08/02/2023 MEDICATIONS Medication SIG (Take, Route, Frequency, Duration) Notes Start Date End Date Status traZODone HCl 50 MG 2 tablets at bedtime Orally Once a day Active Nortriptyline HCl 75 MG 1 capsule at bed time Orally Once a day Active Celecoxib 200 MG 1 capsule with food as needed Orally Twice a day for 15 days 01/06/2024 Active Rosuvastatin Calcium 5 MG 1 tablet Orall y Once a day Active Pantoprazole Sodium 40 MG 1 tablet Orall y Once a day Active Vitamin D (Cholecalciferol) 50 MCG (1999 UT) 1 capsule Orally Once a day 11/18/2020 Active Doxycycline Hyclate 100 MG 1 tablet Oral ly Twice a day for 7 days 02/24/2024 Active IMMUNIZATIONS Vaccine Route Administration Date Status Comme nts COVID-19 Pfizer BioNTech Unknown 08/28/2020 Administere d COVID-19 Pfizer BioNTech Unknown 09/19/2020 Administere d COVID-19 Pfizer BioNTech Unknown 04/25/2021 Administere d COVID-19 Moderna Bivalent Unknown 05/02/2022 Administer ed Flu-aIIV4 Unknown 05/02/2022 Administered Flu-aIIV4 Unknown 09/06/2023 Administered Shingrix Unknown 09/06/2023 Administered Influenza Unknown 05/11/2019 Refused Influenza Unknown 04/13/2021 Refused Pneumococcal - PPSV23 Unknown 04/13/2021 Refused SOCIAL HISTORY Tobacco Use: Social History Observation [...] Never (0 point) Points 3 Interpretation Positive PROBLEMS Problem Type ICD Code Onset Dates Problem Status W/U Status Risk SNOMED Code Notes Problem Gastroesophageal reflux disease without esophagitis (K21.9) Active confirmed 355734969 Problem Primary osteoarthritis, right hand (M19.041) Active confirmed 95467038 Problem Anxiety (F41.9) Active confirmed 130456 02 Problem Migraine with aura and without status migrainosus, not intractable (G43.109) Active confirmed 8894974 Problem Pain of left thumb (M79.645) Active confirmed [id number] Problem Hypercholesterolemia (E78.00) Active confirmed Hypercholestero lemia (62125622) Encounters Encounter Location Date Provider Diagnosis Bhupinder Brock DO, [address] [id number] 08/09/2023 Bhupinder Brock Bhupinder Conte Del[place] , [address] [id number] 05/17/2023 Bhupinder Brock Palpitations R00.2 ; Hypercholesterolemia E78.00 ; Gastroesophageal reflux disease without esophagitis K21.9 and Anxiety F41.9 Bhupinder Brock DO, [address] [id number] 05/04/2023 Bhupinder Brock DO, [address] [id number] 07/19/2023 Bhupinder Brock DO, [address] [id number] 01/06/2024 Bhupinder Brock DO, [address] [id number] 01/16/2024 Bhupinder Vegaman , [address] [id number] 02/24/2024 Bhupinder Roe Dg [place] , [address] [id number] 01/06/2024 Bhupinder Brock Acute midline thorac ic back pain M54.6 ASSESSMENTS Encounter Date Diagnosis Assessment Notes Treatment Notes Treatment Clinical Notes 05/17/2023 Palpitations (ICD-10 - R00.2) 05/17/2023 Hypercholesterolemia (ICD-10 - E78.00) 01/06/2024 Acute midline thorac ic back pain (ICD-10 - M54.6) Continue acetaminophen, lidocaine cream, ice to the area 05/17/2023 Gastroesophageal ref lux disease without esophagitis (ICD-10 - K21.9) 05/17/2023 Anxiety (ICD-10 - F41.9) PLAN OF TREATMENT No Information Insurance Providers Payer Name Payer Address Payer Phone Subscriber Number Group Number Insured Name Patient Relationship to Insured Coverage Start Date Coverage End Date BLUE CROSS BLUE SHIELD MEDICARE [address] [place], [place] [id number] Demetra Gamble Self - patient is the insured MEDICARE [address] [place] [address] [id number] Demetra Gamble Self - patient is the insured MEDICAL (GENERAL) HISTORY Medical History History ICD Code gastroesophageal reflux disease (GERD) tubular adenoma osteopenia degenerative joint disease intestinal volvulus anxiety migraine headaches trigeminal neuralgia Hypercholesterolemia E78.00 Surgical History Surgery Date(Month/Year) volvulus repair ruptured ectopic
--- OUTSIDE RECORDS SUMMARY | 2024-03-20 09:28 | XMS_ITS | Patient Health Record ---
Author Organization [facility] Address [address] [place] [address] Care Team Providers Care Gas Meter Installer Name Role Phone Bhupinder Brock DO Primary Care Provider Unavail able Bhupinder Carlisle Unavailable [phone] ALLERGIES Allergen (clinical drug ingredient) Drug/Non Drug Allergy documented on EMR Reaction Allergy Type Onset Date Status sulfacetamide Sulfacetamide Sodium Unknown Drug Allergy Active REASON FOR REFERRAL No Information MEDICATIONS Medication SIG (Take, Route, Frequency, Duration) Notes Start Date End Date Status Nortriptyline HCl 75 MG 1 capsule Orally Once a day Active traZODone HCl 50 MG 1 tablet at bedtime Orally Once a day Active Pantoprazole Sodium 40 MG 1 tablet Orally Once a day Active Colace Active Calcium + D3 Active Tylenol PRN Active IMMUNIZATIONS Vaccine Route Administration Date Status Comme nts Influenza Unknown 04/30/2020 Administered SOCIAL HISTORY Tobacco Use: Social History Observation Description Date Details (start date - stop date) Never Smoker NA - NA Sex Assigned At : Social History Observation Description Sex Assigned At Unknown Tobacco Use/Smoking Question Answer Notes Patient is a nonsmoker Alcohol Screen Question Answer Notes Did you have a drink contain ing alcohol in the past year? Yes How often did you have a dri nk containing alcohol in the past year? 4 or more times a week (4 points) How many drinks did you have on a typical day when you were drinking in the past year? 1 or 2 drinks (0 point) How often did you have 6 or more drinks on one occasion in the past year? Never (0 point) Points 4 Interpretation Positive PROBLEMS Problem Type ICD Code Onset Dates Problem Status W/U Status Risk SNOMED Code Notes Problem History of colonic polyps (Z86.010) Active confirmed 088519770 Problem Gastroesophageal reflux disease with esophagitis, unspecified whether hemorrhage (K21.00) Active confirmed 406053067 Problem Encounter for screening for malignant neoplasm of colon (Z12.11) Active confirmed 861477918 PLAN OF TREATMENT Pending Test Test Name Order Date Pathology 11/07/2020 Future Test Test Name Order Date UPPER GI ENDOSCOPY 10/22/2020 COLONOSCOPY 10/22/2020 Insurance Providers Payer Name Payer Address Payer Phone Subscriber Number Group Number Insured Name Patient Relationship to Insured Coverage Start Date Coverage End Date [facility] [address] [place], [place] [id number] CHELSEY ALVAREZ Self - patient is the insured MEDICAL (GENERAL) HISTORY Medical History History ICD Code Denies ND,DM,CVA,Lung disease,renal dise ase GERD Arthritis of the right thumb Anxiety Colonoscopy in approximately 2010 with removal of polyps by Dr. Doshi and a negative followup colonoscopy in approximately 2015. Surgical History Surgery Date(Month/Year) Volvulus--at [facility]--8 inches o f intestine removed--? small or large intestine 2013 ECTOPIC -RUPTURE 1990
--- OUTSIDE RECORDS SUMMARY | 2024-03-20 09:28 | XMS_ITS | Patient Health Record ---
Author Organization [facility] Address [address] [place] [address] Care Team Providers Care Oliver Filter Operator Name Role Phone Bhupinder Brock MD Primary Care Provider Unavail able Black, Clara Unavailable [phone] ALLERGIES Allergen (clinical drug ingredient) Drug/Non Drug Allergy documented on EMR Reaction Allergy Type Onset Date Status sulfamethoxazole / trimethoprim Bactrim nerve pain Drug Allergy Active REASON FOR REFERRAL No Information MEDICATIONS Medication SIG (Take, Route, Frequency, Duration) Notes Start Date End Date Status Rosuvastatin Calcium 5 MG 1 capsule Orally Active Protonix 40 MG as directed Orally pantropozole Active Nortriptyline HCl 75 MG 1 capsule Orally Once a day 05/18/2018 Active traZODone HCl 50 MG 1 tablet at bedtime as needed Orally Once a day 05/18/2018 Active Colace Active Calcium + D Not-Taki ng Apple Cider Vinegar PRN Active Vitamin D3 Active IMMUNIZATIONS Vaccine Route Administration Date Status Comme nts COVID-19 Pfizer BioNTech Vaccine Unknown 04/16/2021 Administered First Dose: 09/25/2020 Second Dose:10/20/2020 SOCIAL HISTORY Tobacco Use: Social History Observation Description Date Details (start date - stop date) Never Smoker NA - NA Sex Assigned At : Social History Observation Description Sex Assigned At Unknown Tobacco Use/Smoking Question Answer Notes Are you a: nonsmoker Additional Findings: Tobacco Non-User Current no n-smoker Alcohol Screen Question Answer Notes Did you have a drink contain ing alcohol in the past year? Yes How often did you have a dri nk containing alcohol in the past year? 4 or more times a week (4 points) Points 4 Interpretation Positive Tobacco use other than smoking: Question Answer Notes Are you an other tobacco user? No PROBLEMS Problem Type ICD Code Onset Dates Problem Status W/U Status Risk SNOMED Code Notes Problem Hallux valgus (acquired), right foot (M20.11) Active confirmed Acquired hallux valgus (25418999) Problem Other hammer toe(s) (acquired), right foot (M20.41) Active confirmed Acquired hammer toe of right foot (4454798439418 105) Problem Other hammer toe(s) (acquired), left foot (M20.42) Active confirmed Acquired hammer toe of left foot (4101419240510 103) PLAN OF TREATMENT No Information Insurance Providers Payer Name Payer Address Payer Phone Subscriber Number Group Number Insured Name Patient Relationship to Insured Coverage Start Date Coverage End Date [facility] 65 Medicare Preferred [address] [place] [address] [phone] [id number] Demetra Gamble Self - patient is the insured MEDICAL (GENERAL) HISTORY Medical History History ICD Code Anxiety Back pain Migraines Osteopenia Reflux ( GERD) Measles Mumps Chicken pox Arthritis Cholesterol Eczema chronic sinusitis Warts Neuralgia Transfusions Surgical History Surgery Date(Month/Year) ectopic - ruptured tube 03/1991 intestinal surgery - volvulus 12/2012 Severe Cut right wrist 1954
--- NOTE | 2024-03-20 09:31 | A.OFFVIS_ITS ---
Intake Visit Reasons: OV - Left Thumb Injection - Last Injection 11/29/23 Intake Note: Demetra is a 68 yo right hand dominant female who presents today for a repeat left thumb basal joint injection, last done 11/29/23. Patient states last injection helped and would like to repeat it today. Allergies Sulfa (Sulfonamide Antibiotics) [SULFA (SULFONAMIDE ANTIBIOTICS)] Allergy (Unknown, Verified 03/20/24 09:31) SKIN HURTS, nerve pain, skin extremely sensitive, painful yellow jacket bee Allergy (Unknown, Uncoded 03/20/24 09:31) rash HPI HPI OV - Left Thumb Injection - Last Injection 11/29/23: Details: Demetra is a 68 year old woman with left basal joint OA. She has a Hx of repeat steroid injections, her last was on 11/29/23 which she says was helpful She has pain at the base of her left thumb, which she describes as sharp, but this is intermittent. She says this sharp pain has been occurring more occasionally when gripping objects. She says her pain returned ~1 week ago. She says the injections have been helping her, but for the last few injections she says she experiences some pain for 2-3 days following her injection. She manages her pain with Tylenol, and says she cannot take PO NSAIDs. She says a few weeks ago she fell off a ladder when climbing up to clean her gutters. She denies any broken bones but says she had back pain & could not move comfortable for ~2 weeks. 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 [facility] Medical History Anxiety Arthritis GERD (gastroesophageal reflux disease) Volvulus History of ectopic Surgical History Hx of colonoscopy History of intestinal surgery History of ovarian cystectomy History of salpingectomy Family History Father Alzheimer's dementia Mother Emphysema of lung Social History Are you a primary career guidance technician to a significant other at home: No Do you presently have visiting nurse or other home services: No Alcohol intake: current Alcohol intake frequency: holidays/special occasions only Patient Tobacco Use Status: Never used Tobacco Cigarette Packs Per Day: 0.5 Years Smoked: 0.5 Current occupational status: retired Current occupation: rt handed Sexual orientation: Straight/Heterosexual Gender identity: Female Female Reproductive History Menstrual Age of Menarche: 10 Review of Systems Const All systems reviewed & are unremarkable except as noted in HPI and below Physical Exam Const General: cooperative, healthy appearing and no acute distress Orientation/consciousness: patient oriented x3 Neuro General: patient oriented x3 Extrem Other: Evaluation of Upper Extremity: The patient is alert, oriented, and in no acute distress Neuro: Median, Ulnar, Radial nerves motor and sensory intact and sensation is normal to the tips of all digits Vascular: Cap refill brisk ROM: Can bring fingers closed to a fist and back out to full extension. She has ~20-30 degrees of hyperextension of the thumb She is most tender to palpation over the basal joint of the left thumb. Positive shoulder sign and positive CMC grind. Not particularly tender over the MCP joint or over the 1st dorsal compartment. Radiographs: 3 views of the left hand, with attention to the thumb, from 11/29/23 were reviewed by me today in clinic today. There is basal joint arthritis with subchondral sclerosis, osteophyte formation, and joint space narrowing. Psych Appearance: grossly normal Affect: normal affect Attitude: cooperative Office Procedures Fracture Care Details: No fracture, injection Fracture Billing Code: Fracture Billing Code Assessment & Plan Assessment & Plan (1) Arthritis of carpometacarpal (CMC) joint of left thumb: Code(s): M18.12 - Unilateral primary osteoarthritis of first carpometacarpal joint, left hand Category: Medical Plan Assessment and plan: 1. Left basal joint osteoarthritis, S/P injections Date of Injections: 03/20/24, 11/29/23, 07/26/23, 02/23/23, 10/19/22, 06/22/22, 01/13/22, 09/08/21, 05/05/2021, 10/21/2020 & 06/2020 I educated the patient about this condition We discussed the importance of activity modification. She will continue to wear her neoprene thumb spica splint with daily activity We discussed treatment options. She would like to repeat her injection today Injection #1 : The risks and benefits of a steroid injection including but not limited to risk of damage to blood vessels, nerve, tendon, infection, skin bleaching, persistent or worsening pain, and failure to improve symptoms were discussed with the patient and they wish to proceed with the steroid injection. Once consent was obtained the skin over the dorsum of the left basal joint was sterilely prepped.? The joint was then injected with a combination of 1 mL of (40 mg/ml} Depo-Medrol and 0.25 % plain Marcaine.? The patient appears to have tolerated the procedure well and with no complications.? She had good relief of her symptoms before leaving clinic today. She may not have another steroid injection for 4 months. Follow-up prn Scribed for Gillian Box MD by rajan Michelle, on 03/20/24 at 9:40 AM, EST. Scribe Plan - Not visible on output: Scribed for Gillian Box MD by rajan Michelle, on [ ] at [ ], EST. Coding Level of Care Code Est Pt Level 3 (71129) Diagnoses Arthritis of carpometacarpal (CMC) joint of left thumb M18.12 CPT Codes Fracture Care - Fracture Billing Code: Fracture Billing Code ([id number])
== END 2024-03-20 09:56 | disposition home or self-care (01) ==
LOC: HO.HOS 09:25
PROVIDERS: PCP Internal Medicine; Visit Provider Orthopaedic Surgery
DX: M18.12 Unilateral primary osteoarthritis of first carpometacarpal joint, left hand (principal)
CPT/HCPCS: 20600

== ENCOUNTER → 2024-03-20 09:25 | Outpatient (BNVA) | payer MEDICARE, SELFPAY | PROVIDERS: PCP Internal Medicine; Visit Provider Orthopaedic Surgery | DX: M18.12 Unilateral primary osteoarthritis of first carpometacarpal joint, left hand (principal) | CPT/HCPCS: 20600; J1010 ==

== ENCOUNTER 2024-07-24 10:35 | Outpatient (AMB) | payer MEDICARE, SELFPAY ==
--- NOTE | 2024-07-24 10:36 | MHC.OFFVIS ---
Vital Signs 07/24/24 10:40 Height 5 ft 3 in Weight 128 lb BMI 22.7 Intake Visit Reasons: Basal Joint injection Intake Note: Demetra is a 68 yo right hand dominant female who presents today for a repeat left thumb basal joint injection, last done 03/20/24. Patient states last injection helped and would like to repeat it today. Allergies Sulfa (Sulfonamide Antibiotics) [SULFA (SULFONAMIDE ANTIBIOTICS)] Allergy (Unknown, Verified 07/24/24 10:41) SKIN HURTS, nerve pain, skin extremely sensitive, painful yellow jacket bee Allergy (Unknown, Uncoded 07/24/24 10:41) rash HPI HPI Basal Joint injection: Details: Demetra is a 69 year old woman with left basal joint OA. She has a Hx of repeat steroid injections, her last was on 03/20/24 which she says was helpful She has pain at the base of her left thumb, which she describes as sharp, but this is intermittent. She says this sharp pain has been occurring more occasionally when gripping objects. She says her pain returned recently and she would like a repeat injection today. She says the injections have been helping her, but for the last few injections she says she experiences some pain for 2-3 days following her injection. She manages her pain with Tylenol, and says she cannot take PO NSAIDs. 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 [facility] Medical History Anxiety Arthritis GERD (gastroesophageal reflux disease) Volvulus History of ectopic Surgical History Hx of colonoscopy History of intestinal surgery History of ovarian cystectomy History of salpingectomy Family History Father Alzheimer's dementia Mother Emphysema of lung Social History Are you a primary gericare aide to a significant other at home: No Do you presently have visiting nurse or other home services: No Alcohol intake: current Alcohol intake frequency: holidays/special occasions only Patient Tobacco Use Status: Never used Tobacco Cigarette Packs Per Day: 0.5 Years Smoked: 0.5 Current occupational status: retired Current occupation: rt handed Sexual orientation: Straight/Heterosexual Gender identity: Female Female Reproductive History Menstrual Age of Menarche: 10 Physical Exam Vital Signs: BMI result Body Mass Index 22.7 Const General: cooperative, healthy appearing and no acute distress Orientation/consciousness: patient oriented x3 Neuro General: patient oriented x3 Extrem Other: Evaluation of Upper Extremity: The patient is alert, oriented, and in no acute distress Neuro: Median, Ulnar, Radial nerves motor and sensory intact and sensation is normal to the tips of all digits Vascular: Cap refill brisk ROM: Can bring fingers closed to a fist and back out to full extension. She has ~20-30 degrees of hyperextension of the thumb She is most tender to palpation over the basal joint of the left thumb. Positive shoulder sign and positive CMC grind. Not particularly tender over the MCP joint or over the 1st dorsal compartment. Radiographs: 3 views of the left hand, with attention to the thumb, from 11/29/23 were reviewed by me today in clinic today. There is basal joint arthritis with subchondral sclerosis, osteophyte formation, and joint space narrowing. Psych Appearance: grossly normal Affect: normal affect Attitude: cooperative Office Procedures AMB Fracture Care Details: No fracture, Injection Fracture Billing Code: Fracture Billing Code Assessment & Plan Assessment & Plan (1) Arthritis of carpometacarpal (CMC) joint of left thumb: Code(s): M18.12 - Unilateral primary osteoarthritis of first carpometacarpal joint, left hand Category: Medical Plan Assessment and plan: 1. Left basal joint osteoarthritis, S/P injections Date of Injections: 07/24/24, 03/20/24, 11/29/23, 07/26/23, 02/23/23, 10/19/22, 06/22/22, 01/13/22, 09/08/21, 05/05/2021, 10/21/2020 & 06/2020 I educated the patient about this condition We discussed the importance of activity modification. She will continue to wear her neoprene thumb spica splint with daily activity We discussed treatment options. She would like to repeat her injection today Injection #1 : The risks and benefits of a steroid injection including but not limited to risk of damage to blood vessels, nerve, tendon, infection, skin bleaching, persistent or worsening pain, and failure to improve symptoms were discussed with the patient and they wish to proceed with the steroid injection. Once consent was obtained the skin over the dorsum of the left basal joint was sterilely prepped.? The joint was then injected with a combination of 1 mL of (40 mg/ml} Depo-Medrol and 0.25 % plain Marcaine.? The patient appears to have tolerated the procedure well and with no complications.? She had good relief of her symptoms before leaving clinic today. She may not have another steroid injection for 4 months. Follow-up prn Scribed for Gillian Box MD by Ray Roman, medical customer service representative, on 07/24/24 at 10:45 AM, EST. Coding Level of Care Code Est Pt Level 3 (57887) Diagnoses Arthritis of carpometacarpal (CMC) joint of left thumb M18.12 CPT Codes Fracture Care - Fracture Billing Code: Fracture Billing Code ([id number])
[2024-07-24 10:40] VITALS: BMI 22.7
== END 2024-07-24 10:55 | disposition home or self-care (01) ==
PROVIDERS: PCP Internal Medicine; Visit Provider Orthopaedic Surgery
DX: M18.12 Unilateral primary osteoarthritis of first carpometacarpal joint, left hand (principal)
CPT/HCPCS: 20600; 99213

== ENCOUNTER → 2024-07-24 10:35 | Outpatient (BNVA) | payer MEDICARE, SELFPAY | PROVIDERS: PCP Internal Medicine; Visit Provider Orthopaedic Surgery | DX: M18.12 Unilateral primary osteoarthritis of first carpometacarpal joint, left hand (principal) | CPT/HCPCS: 20600; 99212; J1010; J2003 ==

== ENCOUNTER 2024-10-10 12:48 | Outpatient (REF) | payer MEDICARE, SELFPAY ==
--- OUTSIDE RECORDS SUMMARY | 2024-10-10 15:13 | XMS_ITS | Patient Health Record ---
Author Organization [facility] Address [address] [place], [place] [id number] Care Team Providers Care Pug Machine Operator Name Role Phone Bhupinder Brock DO Primary Care Provider Unavail able Allergies Allergen (clinical drug ingredient) Drug/Non Drug Allergy documented on EMR Reaction Allergy Type Onset Date Status Substance with sulfonamide structure and antibacterial mechanism of action (substance) Sulfa Antibiotics rash Drug Allergy Active Reason For Referral No Information Medications Medication SIG (Take, Route, Frequency, Duration) Notes Start Date End Date Status Pantoprazole Sodium 40 MG 1 tablet Orall y Once a day for 30 day(s) Active Nortriptyline HCl 75 MG 1 capsule Orally Once a day for 30 day(s) Active traZODone HCl 50 MG 2 tablet at bedtime as needed Orally Once a day Active Meloxicam 15 MG 1 tablet Orally Once a day for 30 day(s) Not-Taking Cyclobenzaprine HCl 10 MG 1 tablet at be dtime as needed Orally Once a day for 30 day(s) Not-Taking Valtrex 1 GM 1 tablet Orally 3 times a day for 7 days 12/30/2022 Not-Takin g Gabapentin 300 MG 1 capsule Orally bid Not-Taking Plan Of Treatment No Information Insurance Providers Payer Name Payer Address Payer Phone Subscriber Number Group Number Insured Name Patient Relationship to Insured Coverage Start Date Coverage End Date [employer]UE [employer]IELD [address] [place], [place] [id number] [phone] [id number] Demetra Hall Self - patient is the insured
--- OUTSIDE RECORDS SUMMARY | 2024-10-10 15:13 | XMS_ITS | Patient Health Record ---
Author Organization [facility] Address [address] [place] [address] Care Team Providers Care Convention Worker Name Role Phone Bhupinder Brock MD Primary Care Provider Unavail able Black, Clara Unavailable [phone] Allergies Allergen (clinical drug ingredient) Drug/Non Drug Allergy documented on EMR Reaction Allergy Type Onset Date Status sulfamethoxazole / trimethoprim Bactrim nerve pain Drug Allergy Active Reason For Referral No [...] Cider Vinegar PRN Active Vitamin D3 Active Immunizations Vaccine Route Administration Date Status Comme nts COVID-19 Pfizer BioNTech Vaccine Unknown 04/16/2021 Administered First Dose: 09/25/2020 Second Dose:10/20/2020 Social History Tobacco Use: Social History Observation Description Date Details (start date - stop date) Never Smoker NA - NA Tobacco Use/Smoking Question Answer Notes Are you [...] Are you an other tobacco user? No Problems Problem Type SNOMED Code ICD Code Onset Dates Problem Status W/U Status Risk Notes Problem Acquired hallux valgus (56303946) Hallux valgus (acquired), right foot (M20.11) Active confirmed Problem Acquired hammer toe of right foot (6157946774787 105) Other hammer toe(s) (acquired), right foot (M20.41) Active confirmed Problem Acquired hammer toe of left foot (4270995997851 103) Other hammer toe(s) (acquired), left foot (M20.42) Active confirmed Plan Of Treatment No Information Insurance Providers Payer Name Payer Address Payer Phone Subscriber Number Group Number Insured Name Patient Relationship to Insured Coverage Start Date Coverage End Date [employer] 65 Medicare Preferred [address] [place] [address] [phone] [id number] Demetra Gamble Self - patient is the insured Medical (General) History Medical History History ICD Code Anxiety Back pain Migraines Osteopenia Reflux ( GERD) Measles Mumps Chicken pox Arthritis Cholesterol Eczema chronic sinusitis Warts Neuralgia Transfusions Surgical History Surgery Date(Month/Year) ectopic - ruptured tube 03/1991 intestinal surgery - volvulus 12/2012 Severe Cut right wrist 1954
--- OUTSIDE RECORDS SUMMARY | 2024-10-10 15:13 | XMS_ITS | Patient Health Record ---
Author Organization [facility] Address [address] [place] [address] Care Team Providers Care Hhas Name Role Phone Delmy (RETIRED) Bhupinder MONTANEZ Primary Care Provid er Unavailable Bhupinder Carlisle Unavailable [phone] Allergies Allergen (clinical drug ingredient) Drug/Non Drug Allergy documented on EMR Reaction Allergy Type Onset Date Status sulfacetamide Sulfacetamide Sodium Unknown Drug Allergy Active Reason For Referral No [...] Calcium + D3 Active Tylenol PRN Active Immunizations Vaccine Route Administration Date Status Comme nts Influenza Unknown 04/30/2020 Administered Social History Tobacco Use: Social History Observation Description Date Details (start date - stop date) Never Smoker NA - NA Tobacco Use/Smoking Question Answer Notes Patient is [...] Never (0 point) Points 4 Interpretation Positive Section Notes: Nonsmoker; occ. alcohol Problems Problem Type SNOMED Code ICD Code Onset Dates Problem Status W/U Status Risk Notes Problem 317435584 Encounter for screening for malignant neoplasm of colon (Z12.11) Active confirmed Problem 861274396 History of colon ic polyps (Z86.010) Active confirmed Problem 449415403 Gastroesophageal reflux disease with esophagitis, unspecified whether hemorrhage (K21.00) Active confirmed Plan Of Treatment Pending Test Test Name Order Date Pathology 11/07/2020 Future Test Test Name Order Date UPPER GI ENDOSCOPY 10/22/2020 COLONOSCOPY 10/22/2020 Insurance Providers Payer Name Payer Address Payer Phone Subscriber Number Group Number Insured Name Patient Relationship to Insured Coverage Start Date Coverage End Date [facility] [address] [place], [place] [id number] CHELSEY ALVAREZ Self - patient is the insured Medical (General) History Medical History History ICD Code Denies RI,DM,CVA,Lung disease,renal dise ase GERD Arthritis of the right thumb Anxiety Colonoscopy in approximately 2010 with removal of polyps by Dr. Doshi and a negative followup colonoscopy in approximately 2015. Surgical History Surgery Date(Month/Year) Volvulus--at [facility]--8 inches o f intestine removed--? small or large intestine 2013 ECTOPIC -RUPTURE 1990
== END 2024-10-10 12:49 | disposition home or self-care (01) ==
LOC: HO.MAMMO 12:48
PROVIDERS: Absent Provider Internal Medicine; PCP Internal Medicine; Visit Provider Internal Medicine
DX: Z12.31 Encounter for screening mammogram for malignant neoplasm of breast (principal)
CPT/HCPCS: 77063; 77067

== ENCOUNTER → 2024-10-10 13:00 | Outpatient (BNV) | payer MEDICARE, SELFPAY | PROVIDERS: Absent Provider Internal Medicine; PCP Internal Medicine; Visit Provider Internal Medicine | DX: Z12.31 Encounter for screening mammogram for malignant neoplasm of breast (principal) | CPT/HCPCS: 77063; 77067 ==

== ENCOUNTER 2024-11-21 11:21 | Outpatient (AMB) | payer MEDICARE, SELFPAY ==
[2024-11-21 12:02] VITALS: BMI 22.7
--- NOTE | 2024-11-21 12:02 | MHC.OFFVIS ---
Vital Signs 11/21/24 12:02 Height 5 ft 3 in Weight 128 lb BMI 22.7 Intake Visit Reasons: INJ-Basal Joint injection last 07/24/24 Intake Note: Demetra is a 68 yo right hand dominant female who presents today for a repeat left thumb basal joint injection, last done 07/24/24. Patient states last injection helped and would like to repeat it today Allergies Sulfa (Sulfonamide Antibiotics) [SULFA (SULFONAMIDE ANTIBIOTICS)] Allergy (Unknown, Verified 11/21/24 12:10) SKIN HURTS, nerve pain, skin extremely sensitive, painful yellow jacket bee Allergy (Unknown, Uncoded 11/21/24 12:10) rash HPI HPI INJ-Basal Joint injection last 07/24/24: Details: Demetra is a 69 year old woman with left basal joint OA. She has a Hx of repeat steroid injections, her last was on 07/24/24, which she says was helpful, but not for as long as previously. She has pain at the base of her left thumb, which she describes as sharp, but this is intermittent. She says this sharp pain has been occurring more occasionally when gripping objects. She says her pain returned recently and she would like a repeat injection today. She says the injections have been helping her, but for the last few injections she says she experiences some pain for 2-3 days following her injection. This was particularly worse after her most recent injection. She manages her pain with Tylenol, and says she cannot take PO NSAIDs. 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 [facility] Medical History Anxiety Arthritis GERD (gastroesophageal reflux disease) Volvulus History of ectopic Surgical History Hx of colonoscopy History of intestinal surgery History of ovarian cystectomy History of salpingectomy Family History Father Alzheimer's dementia Mother Emphysema of lung Social History Are you a primary infant caregiver to a significant other at home: No Do you presently have visiting nurse or other home services: No Alcohol intake: current Alcohol intake frequency: holidays/special occasions only Patient Tobacco Use Status: Never used Tobacco Cigarette Packs Per Day: 0.5 Years Smoked: 0.5 Current occupational status: retired Current occupation: rt handed Sexual orientation: Straight/Heterosexual Gender identity: Female Female Reproductive History Menstrual Age of Menarche: 10 Physical Exam Vital Signs: BMI result Body Mass Index 22.7 Const General: cooperative, healthy appearing and no acute distress Orientation/consciousness: patient oriented x3 Neuro General: patient oriented x3 Extrem Other: Evaluation of Upper Extremity: The patient is alert, oriented, and in no acute distress Neuro: Median, Ulnar, Radial nerves motor and sensory intact and sensation is normal to the tips of all digits Vascular: Cap refill brisk ROM: Can bring fingers closed to a fist and back out to full extension. She has ~20-30 degrees of hyperextension of the thumb She is most tender to palpation over the basal joint of the left thumb. Positive shoulder sign and positive CMC grind. Not particularly tender over the MCP joint or over the 1st dorsal compartment. Radiographs: 3 views of the left hand, with attention to the thumb, from 11/29/23 were reviewed by me today in clinic today. There is basal joint arthritis with subchondral sclerosis, osteophyte formation, and joint space narrowing. Psych Appearance: grossly normal Affect: normal affect Attitude: cooperative Office Procedures AMB Fracture Care Details: no fracture, injection Fracture Billing Code: Fracture Billing Code Assessment & Plan Assessment & Plan (1) Arthritis of carpometacarpal (CMC) joint of left thumb: Code(s): M18.12 - Unilateral primary osteoarthritis of first carpometacarpal joint, left hand Category: Medical Plan Assessment and plan: 1. Left basal joint osteoarthritis, S/P injections Date of Injections: 11/21/24, 07/24/24, 03/20/24, 11/29/23, 07/26/23, 02/23/23, 10/19/22, 06/22/22, 01/13/22, 09/08/21, 05/05/2021, 10/21/2020 & 06/2020 I educated the patient about this condition We discussed the importance of activity modification. She will continue to wear her neoprene thumb spica splint with daily activity We discussed treatment options. She would like to repeat her injection today Injection #1 : The risks and benefits of a steroid injection including but not limited to risk of damage to blood vessels, nerve, tendon, infection, skin bleaching, persistent or worsening pain, and failure to improve symptoms were discussed with the patient and they wish to proceed with the steroid injection. Once consent was obtained the skin over the dorsum of the left basal joint was sterilely prepped.? The joint was then injected with a combination of 1 mL of (40 mg/ml} Depo-Medrol and 0.25 % plain Marcaine.? The patient appears to have tolerated the procedure well and with no complications.? She had good relief of her symptoms before leaving clinic today. She may not have another steroid injection for 4 months. Follow-up prn Scribed for Gillian Box MD by Ray Roman, medical equipment technician, on 11/21/24 at 12:10 PM, EST. Coding Level of Care Code Est Pt Level 3 (25031) Diagnoses Arthritis of carpometacarpal (CMC) joint of left thumb M18.12 CPT Codes Fracture Care - Fracture Billing Code: Fracture Billing Code ([id number])
== END 2024-11-21 12:59 | disposition home or self-care (01) ==
LOC: HO.HOS 11:21
PROVIDERS: PCP Internal Medicine; Visit Provider Orthopaedic Surgery
DX: M18.12 Unilateral primary osteoarthritis of first carpometacarpal joint, left hand (principal)
CPT/HCPCS: 20600; 99213

== ENCOUNTER → 2024-11-21 11:21 | Outpatient (BNVA) | payer MEDICARE, SELFPAY | PROVIDERS: PCP Internal Medicine; Visit Provider Orthopaedic Surgery | DX: M18.12 Unilateral primary osteoarthritis of first carpometacarpal joint, left hand (principal) | CPT/HCPCS: 20600; 99212; J1010; J2003 ==

== ENCOUNTER 2025-03-11 13:25 | Outpatient (AMB) | payer MEDICARE, SELFPAY ==
--- NOTE | 2025-03-11 13:26 | A.OFFPC_ITS ---
Vital Signs 03/11/25 13:28 Height 5 ft 3.86 in Weight 127 lb BMI 21.9 BP 140/70 H Respiration 14 Pulse 70 Pulse Source Pulse Oximeter Temp 98.2 F Temp Source Temporal Artery Scan Pulse Oximetry (%) 98 Oxygen Delivery Method Room Air Intake Visit Reasons: establish care Entry Level Finance Required: No Accompanied by: Self / Same As Patient Allergies Sulfa (Sulfonamide Antibiotics) (SULFA (SULFONAMIDE ANTIBIOTICS)) Allergy (Unknown, Verified 03/11/25 13:27) SKIN HURTS, nerve pain, skin extremely sensitive, painful yellow jacket bee Allergy (Unknown, Uncoded 03/11/25 13:27) rash Tobacco use date assessed: 03/11/25 Fall risk assessment: 1 Fall in past year Last assessed Fall Risk: 03/11/25 Dental Screening Dental Screen Date: 03/11/25 Did you have a dental visit in the last 12 months?: Yes Did you have a dental problem in the last 6 months where you did not have access to dental care?: No Was dental information given to patient?: Patient has dentist [facility] Medical History Anxiety Arthritis GERD (gastroesophageal reflux disease) Volvulus History of ectopic Surgical History Hx of colonoscopy (~11/07/20) History of intestinal surgery History of ovarian cystectomy History of salpingectomy Family History Father Alzheimer's dementia Mother Emphysema of lung Social History (Updated 03/11/25 @ 13:33 by DANIELITO Garrido) Housing: House Are you a primary lawn care technician to a significant other at home: No Do you presently have visiting nurse or other home services: No Alcohol intake: current Alcohol intake frequency: holidays/special occasions only Patient Tobacco Use Status: Former Tobacco user service: No Current occupational status: retired Sexual orientation: Straight/Heterosexual Gender identity: Female Cognitive needs: No Hearing needs: No Vision needs: Yes (rx glasses) Female Reproductive History Menstrual Age of Menarche: 10 Questionnaire PHQ-9 Over the last 2 weeks, how often have you been bothered by any of the following problems? 1. Little interest or pleasure in doing things: not at all 2. Feeling down, depressed, or hopeless: not at all 3. Trouble falling or staying asleep, or sleeping too much: not at all 4. Feeling tired or having little energy: not at all 5. Poor appetite or overeating: not at all 6. Feeling bad about yourself - or that you are a failure or have let yourself or your family down: not at all 7. Trouble concentrating on things, such as reading the newspaper or watching television: not at all 8. Moving or speaking so slowly that other people could have noticed. Or the opposite - being so fidgety or restless that you have been moving around a lot more than usual: not at all 9. Thoughts that you would be better off or of hurting yourself in some way: not at all Total score: 0 Source: Developed by Drs. Bhupinder Helms, Yarely Bae, Merrill Miller and colleagues, with an educational kristal from [employer]. Thrive Questionnaire Date Thrive assessed: 03/11/25 I am a: Patient What is your living situation today?: I have a steady place to live Within the past 12 months, did the food you bought not last and you didn't have the money to get more?: Never true Within the past 12 months, did you worry whether your food would run out before you got money to buy more?: Never true Do you have trouble paying for medicines?: No Do you have trouble getting transportation to medical appointments?: No Do you have trouble paying your heating and electricity bill?: No Do you have trouble taking care of your child, family member or friend?: No Do you have trouble with day-to-day activities such as bathing, preparing meals, shopping, managing finances, etc.?: No Are you currently unemployed and looking for a job?: No Are you interested in more education?: No Please select the resources that you would like help with: None THRIVE Score: 0 AUDIT C Alcohol Use Questionnaire (AUDIT-C) 1. How often do you have a drink containing alcohol?: Monthly or less 2. How many drinks containing alcohol do you have on a typical day when you are drinking?: 1 or 2 3. How often do you have six or more drinks on one occasion?: Never Total Score: 1 MEE-7 AMB Questionnaire MEE-7 Date MEE - 7 assessed: 03/11/25 Feeling nervous, anxious, or on edge: 0 = Not at all Not being able to stop or control worryin = Not at all Worrying too much about different things: 0 = Not at all Trouble relaxin = Not at all Being so restless that it is hard to sit still: 0 = Not at all Becoming easily annoyed or irritable: 0 = Not at all Feeling afraid as if something awful might happen: 0 = Not at all Total MEE-7 score (0-4 normal; 5-9 mild; 10-14 moderate; 15-21 severe): 0 Source: Developed by Drs. Bhupinder Helms, Yarely Bae, Merrill Miller and colleagues, with an educational kristal from [employer]. Physical exam (Primary Care) Vital Signs: Last Vital Signs Temp 98.2 F 03/11/25 13:28 Pulse 70 03/11/25 13:28 Resp 14 03/11/25 13:28 BP 140/70 H 03/11/25 13:28 Pulse Ox 98 03/11/25 13:28 Oxygen Delivery Method Room Air 03/11/25 13:28 BMI result Body Mass Index 21.9 Tobacco/Smoking Status: Tobacco use Status Tobacco use date assessed 03/11/25 03/11/25 13:34 Patient Tobacco Use Status Former Tobacco user 03/11/25 13:34 PHQ-9: PHQ-9 Score PHQ-9: Total score 0 03/11/25 13:34 Thrive Assessment: Date of Thrive Assessment Date Thrive assessed 03/11/25 03/11/25 13:34 Coding Level of Care Code New Pt Level 4 (40891) Complex EM visit Add On G2211 Diagnoses Cough R05.9 Assessment & Plan Assessment & Plan (1) Cough: Code(s): R05.9 - Cough, unspecified Plan: History of Present Illness - The patient is a 69-year-old female presenting with a chronic cough. - The cough has been present for a few months, is not constant, and does not disturb her sleep. - It is described as deep and non-productive, sometimes occurring with sneezing. - She fell off a ladder last summer, which resulted in a prolonged recovery period. - She is current with her mammograms, having had one this year, but her last colonoscopy was over four years ago. - The patient occasionally vapes marijuana and has a history of acid reflux. Social History - The patient is retired, previously worked as a cook, and taught English to middle schoolers. - She lives with her of almost 50 years. - She occasionally vapes marijuana and has a history of acid reflux. - The patient engages in making jewelry and participates in outdoor markets, though she is slowing down due to physical demands. Review of Systems - Respiratory: Reports chronic cough for a few months, non-productive, not worsening, does not wake her at night. - Gastrointestinal: Reports history of acid reflux. Physical Exam General: Cooperative and healthy appearing Nutritional Appearance: Well nourished Orientation/consciousness: Patient oriented x3 Limitations: No limitations Head: Normal to inspection General: Appearance normal, both eyes and all related structures Neck: Normal visual inspection Chest: Normal palpation of entire chest wall Respiratory: Occasional cough, deep but not worsening, non-productive. Patient is a nonsmoker but vapes marijuana occasionally. ormal respiratory effort Neurology: Patient oriented x3 Results Plan 1. Chronic Cough - A chest x-ray will be obtained to investigate the cause of the cough. 2. Preventative Care: Colonoscopy - The timing and location of the last colonoscopy will be reviewed, and scheduling will be considered if due. Discussion Notes I discussed with the patient the plan to obtain a chest x-ray to evaluate her chronic cough, which has been persistent for a few months but is not worsening. We also reviewed her preventative care needs, including the timing of her last colonoscopy, to ensure she remains up-to-date with screenings. The patient was informed about the connection of our office with [facility] for streamlined care. Patient Instructions - Schedule a chest x-ray as discussed to evaluate the chronic cough. - Review the date and location of your last colonoscopy and consider scheduling if due.
[2025-03-11 13:28] VITALS: BP 140/70; PULSE 70; RESP 14; TEMP 36.8; O2SAT 98; BMI 21.9
== END 2025-03-11 14:10 | disposition home or self-care (01) ==
LOC: HO.HMCSH 13:25
PROVIDERS: PCP Internal Medicine; Visit Provider Internal Medicine
DX: R05.9 Cough, unspecified (principal)

== ENCOUNTER → 2025-03-11 13:25 | Outpatient (BNVA) | payer MEDICARE, SELFPAY | PROVIDERS: PCP Internal Medicine; Visit Provider Internal Medicine | DX: R05.3 Chronic cough (principal) | CPT/HCPCS: 96127; 99202 ==

== ENCOUNTER 2025-03-15 06:30 | Outpatient (REF) | payer MEDICARE, SELFPAY ==
[2025-03-15 10:07] LABS: Appearance Urine Clear; Glucose Urine UA Negative (Negative); PH 7.0 (5.0-9.0); Specific Gravity - Urine 1.020 (1.005-1.025); UMIC TRIGGER UA YES
[2025-03-15 10:20] LABS: Hematocrit 40.8 % (37.0-47.0); Hemoglobin 13.8 g/dl (12.0-16.0); Mean Corpuscular HGB Conc 33.8 g/dl (31.0-35.0); Mean Corpuscular Hemoglobin 30.8 pg (27.0-33.0); Mean Corpuscular Volume 91.1 fL (80.0-98.0); NRBC Abs Auto 0.000 X10*3/uL (0.0-0.012); NRBC Pct Auto 0.0 /100WBC (0.0-0.2); Platelet Count 175 X10*3/uL (160-400); Red Blood Count 4.48 X10*6/uL (4.20-5.50); White Blood Count 5.6 X10*3/uL (4.8-10.8)
[2025-03-15 11:35] LABS: Alanine Aminotransferase 30 U/L (0-31); Albumin Level 4.1 g/dL (3.5-5.0); Alkaline Phosphatase 60 U/L (39-117); Anion Gap 13 (12-20); Aspartate Amino Transferase 28 U/L (5-31); Blood Urea Nitrogen 22 mg/dL (9-16); Calcium 9.2 mg/dL (8.4-10.2); Carbon Dioxide 26 mmol/L (22-29); Chloride 106 mmol/L (96-108); Cholesterol 178 mg/dL (<200); Estimated Glomerular Filt Rate 57; HDL Cholesterol 56 mg/dL (>40); Potassium 4.4 mmol/L (3.3-5.1); Sodium 141 mmol/L (135-145); Total Protein 6.4 g/dL (6.5-8.0); Triglycerides 86 mg/dL (<150)
[2025-03-15 11:57] LABS: Thyroid Stimulating Hormone 0.79 uIU/mL (0.32-4.0)
== END 2025-03-15 06:31 | disposition home or self-care (01) ==
LOC: HO.HMGCLDS 06:30
PROVIDERS: PCP Internal Medicine; Visit Provider Internal Medicine
DX: E78.5 Hyperlipidemia, unspecified (principal)
CPT/HCPCS: 36415; 80048; 80061; 80076; 81001; 84443; 85027

== ENCOUNTER 2025-03-20 09:08 | Outpatient (REF) | payer MEDICARE, SELFPAY ==
--- NOTE | ~2025-03-20 | XR_ITS ---
EXAMINATION: XR CHEST CLINICAL INFORMATION: R05.9 - Cough, unspecified COMPARISON: October 25, 2014. TECHNIQUE: 2 views of the chest were obtained. FINDINGS: Hyperinflated lungs. No consolidation, pleural effusion or pneumothorax. Cardiomediastinal silhouette size is normal. Calcified plaque thoracic aorta. Multilevel thoracolumbar spondylosis. There is a 30% superior endplate compression deformity with a wedge-shaped morphology pattern in the lower thoracic spine vertebral body probably T12. XR/XR chest 2V IMPRESSION: Concerning chronic interstitial lung disease without acute airspace disease. Subacute to old superior endplate compression deformity, probable T12 vertebra. Electronically signed by: Delmar Hernandez MD 03/20/2025 10:17 AM EDT
== END 2025-03-20 09:09 | disposition home or self-care (01) ==
LOC: HO.HMGCX 09:08
PROVIDERS: PCP Internal Medicine; Visit Provider Internal Medicine
DX: R05.9 Cough, unspecified (principal)
CPT/HCPCS: 71046

== ENCOUNTER → 2025-03-20 09:17 | Outpatient (BNV) | payer MEDICARE, SELFPAY | PROVIDERS: PCP Internal Medicine; Visit Provider Radiology Diagnostic Radiology | DX: J84.9 Interstitial pulmonary disease, unspecified (principal) | CPT/HCPCS: 71046 ==

== ENCOUNTER 2025-03-26 13:42 | Outpatient (AMB) | payer MEDICARE, SELFPAY ==
--- NOTE | 2025-03-26 13:57 | A.OFFVIS_ITS ---
Vital Signs 03/26/25 14:04 Height 5 ft 3 in Weight 127 lb BMI 22.5 Intake Visit Reasons: INJ-Basal Joint injection last 11/21/24 Intake Note: Demetra is a 68 yo right hand dominant female who presents today for a repeat left thumb basal joint injection, last done 11/21/24. Patient states last injection helped and would like to repeat it today Allergies Sulfa (Sulfonamide Antibiotics) (SULFA (SULFONAMIDE ANTIBIOTICS)) Allergy (Unknown, Verified 03/26/25 14:04) SKIN HURTS, nerve pain, skin extremely sensitive, painful yellow jacket bee Allergy (Unknown, Uncoded 03/26/25 14:04) rash HPI HPI INJ-Basal Joint injection last 11/21/24: Details: Demetra is a 69 year old woman with left basal joint OA. She has a Hx of repeat steroid injections, her last was on 11/21/24, which she says was helpful She has pain at the base of her left thumb, which she describes as sharp, but this is intermittent. She says this sharp pain has been occurring more occasionally when gripping objects. She says her pain returned recently and she would like a repeat injection today. She says the injections have been helping her, but for the last few injections she says she experiences some pain for 2-3 days following her injection. This was particularly worse after her most recent injection. She manages her pain with Tylenol, and says she cannot take PO NSAIDs. 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 She complains of several weeks of a dry cough, and had an abnormal chest radiograph. She is scheduled for a chest CT soon. [facility] Medical History (Updated 03/11/25 @ 14:22 by Tacho Schwab MD) Hyperlipidemia Anxiety Arthritis GERD (gastroesophageal reflux disease) Volvulus History of ectopic Surgical History Hx of colonoscopy (~11/07/20) History of intestinal surgery History of ovarian cystectomy History of salpingectomy Family History Father Alzheimer's dementia Mother Emphysema of lung Social History (Updated 03/26/25 @ 14:09 by BERE Treviño) Housing: House Are you a primary child day care teacher to a significant other at home: No Do you presently have visiting nurse or other home services: No Alcohol intake: current Alcohol intake frequency: holidays/special occasions only Patient Tobacco Use Status: Former Tobacco user Tobacco use type: Cigarette service: No Current occupational status: retired Sexual orientation: Straight/Heterosexual Gender identity: Female Cognitive needs: No Hearing needs: No Vision needs: Yes (rx glasses) Female Reproductive History Menstrual Age of Menarche: 10 Physical Exam Vital Signs: BMI result Body Mass Index 22.5 Const General: cooperative, healthy appearing and no acute distress Orientation/consciousness: patient oriented x3 Neuro General: patient oriented x3 Extrem Other: Evaluation of Upper Extremity: The patient is alert, oriented, and in no acute distress Neuro: Median, Ulnar, Radial nerves motor and sensory intact and sensation is normal to the tips of all digits Vascular: Cap refill brisk ROM: Can bring fingers closed to a fist and back out to full extension. She has ~20-30 degrees of hyperextension of the thumb She is most tender to palpation over the basal joint of the left thumb. Positive shoulder sign and positive CMC grind. Not particularly tender over the MCP joint or over the 1st dorsal compartment. Radiographs: 3 views of the left hand, with attention to the thumb, from 11/29/23 were rev iewed by me today in clinic today. There is basal joint arthritis with subchondral sclerosis, osteophyte formation, and joint space narrowing. Psych Appearance: grossly normal Affect: normal affect Attitude: cooperative Office Procedures AMB Fracture Care Details: No fracture, injection Fracture Billing Code: Fracture Billing Code Assessment & Plan Assessment & Plan (1) Arthritis of carpometacarpal (CMC) joint of left thumb: Code(s): M18.12 - Unilateral primary osteoarthritis of first carpometacarpal joint, left hand Category: Medical Plan Assessment and plan: 1. Left basal joint osteoarthritis, S/P injections Date of Injections: 03/26/25, 11/21/24, 07/24/24, 03/20/24, 11/29/23, 07/26/23, 02/23/23, 10/19/22, 06/22/22, 01/13/22, 09/08/21, 05/05/2021, 10/21/2020 & 06/2020 I educated her about this condition I discussed activity modification, they should limit or avoid any heavy or repetitive pinching or gripping activities She will continue to wear her neoprene thumb spica splint with daily activity She should work on ROM exercises, and avoid any gripping or strengthening activities I discussed the use of assistive devices for daily activity Injection #1: The risks and benefits of a steroid injection including but not limited to risk of damage to blood vessels, nerve, tendon, infection, skin bleaching, persistent or worsening pain, and failure to improve symptoms were discussed with the patient and they wish to proceed with the steroid injection. Once consent was obtained the skin over the dorsum of the Left basal joint was sterilely prepped. The joint was then injected with a combination of 1 mL of dexamethasone (4mg/ml) and 1% plain Lidocaine. The patient appears to have tolerated the procedure well and with no complications. She had good early relief before leaving clinic today. She knows that they may not have another steroid injection into this joint for least 4 months. Follow up prn Scribed for Gillian Box MD by Ray Roman, medical certification specialist, on 03/26/25 at 2:30 PM, EST. Coding Level of Care Code Est Pt Level 3 (53898) Diagnoses Arthritis of carpometacarpal (CMC) joint of left thumb M18.12 CPT Codes Fracture Care - Fracture Billing Code: Fracture Billing Code ([id number])
[2025-03-26 14:04] VITALS: BMI 22.5
== END 2025-03-26 14:48 | disposition home or self-care (01) ==
LOC: HO.HOS 13:42
PROVIDERS: PCP Internal Medicine; Visit Provider Orthopaedic Surgery
DX: M18.12 Unilateral primary osteoarthritis of first carpometacarpal joint, left hand (principal)
CPT/HCPCS: 20600; 99213

== ENCOUNTER → 2025-03-26 13:42 | Outpatient (BNVA) | payer MEDICARE, SELFPAY | PROVIDERS: PCP Internal Medicine; Visit Provider Orthopaedic Surgery | DX: M18.12 Unilateral primary osteoarthritis of first carpometacarpal joint, left hand (principal) | CPT/HCPCS: 20600; 99212; J1100; J2003 ==

== ENCOUNTER 2025-04-19 13:40 | Outpatient (AMB) | payer MEDICARE, SELFPAY ==
[2025-04-19 14:15] VITALS: BP 128/60; PULSE 68; TEMP 36.8; O2SAT 97; BMI 22.3
--- NOTE | 2025-04-19 14:15 | MHC.OFFWIV ---
Intake Vital Signs 04/19/25 14:15 Height 5 ft 3 in Weight 126 lb BMI 22.3 BP 128/60 Blood Pressure Location Lt brachial Position Sitting Pulse 68 Pulse Source Pulse Oximeter Temp 98.2 F Temp Source Oral Pulse Oximetry (%) 97 Oxygen Delivery Method Room Air Intake Visit Reasons: EP-neck lump Intake Note: pt presents with a new lump on frontal neck, nodule is free moving denies pain with palpation Patient Tobacco Use Status: Former Tobacco user Allergies Sulfa (Sulfonamide Antibiotics) (SULFA (SULFONAMIDE ANTIBIOTICS)) Allergy (Unknown, Verified 04/19/25 14:15) SKIN HURTS, nerve pain, skin extremely sensitive, painful yellow jacket bee Allergy (Unknown, Uncoded 03/26/25 14:04) rash Do you need a note to return to daycare/school/sports/work: No HPI HPI Comments History of Present Illness Details This is a 69-year-old female with a past medical history of gastroesophageal reflux disease, anxiety and hyperlipidemia presenting for evaluation of a lump on her neck that her neighbor pointed out earlier today. Patient states that she was talking with her neighbor this morning and the neighbor asked her why she had a lump on her neck. Patient had previously not noted this lesion and denies any pain with palpation. Patient states that she feels well and denies any other symptoms including tachycardia, fevers, chills, weight gain, weight loss or difficulty swallowing. [facility] Medical History (Updated 04/19/25 @ 14:43 by Nury Higgins PA-C) Hyperlipidemia Anxiety Arthritis GERD (gastroesophageal reflux disease) Volvulus History of ectopic Surgical History Hx of colonoscopy (~11/07/20) History of intestinal surgery History of ovarian cystectomy History of salpingectomy Family History Father Alzheimer's dementia Mother Emphysema of lung Social History (Updated 03/26/25 @ 14:09 by BERE Treviño) Housing: House Are you a primary direct care specialist to a significant other at home: No Do you presently have visiting nurse or other home services: No Alcohol intake: current Alcohol intake frequency: holidays/special occasions only Patient Tobacco Use Status: Former Tobacco user Tobacco use type: Cigarette service: No Current occupational status: retired Sexual orientation: Straight/Heterosexual Gender identity: Female Cognitive needs: No Hearing needs: No Vision needs: Yes (rx glasses) Female Reproductive History Menstrual Age of Menarche: 10 Review of Systems Const All systems reviewed & are unremarkable except as noted in HPI and below Denies body aches, Denies chills, Denies difficulty sleeping, Denies fever(s), Denies headache(s) and Denies night sweats Eyes Reports no additional complaints ENT Reports as per HPI and Denies headache(s) Card Reports no additional complaints and Denies palpitations Resp Reports no additional complaints Musc Reports no additional complaints Skin/Breast Details: lump anterior neck Neuro Denies headache(s) Psych Reports no additional complaints Endo Reports no additional complaints, Denies change in body appearance, Denies cold intolerance, Denies flushing, Denies polydipsia and Denies palpitations Aller/Immun Reports no additional complaints Physical Exam Vital Signs: Last Vital Signs Temp 98.2 F 04/19/25 14:15 Pulse 68 04/19/25 14:15 BP 128/60 04/19/25 14:15 Pulse Ox 97 04/19/25 14:15 Oxygen Delivery Method Room Air 04/19/25 14:15 BMI result Body Mass Index 22.3 Const General: cooperative, healthy appearing, no acute distress, well developed, alert, awake and Physically active; No acute distress or ill appearing Nutritional Appearance: average body habitus Orientation/consciousness: patient oriented x3 Limitations: no limitations HEENT Head: Yes normal to inspection and Yes normocephalic Eyes General: appearance normal, both eyes and all related structures Neck Neck: No normal visual inspection (rounded lesion visible overlying area of thyroid gland), Yes no lymphadenopathy, Yes trachea midline and Yes supple Thyroid: abnormal thyroid, diffusely enlarged, not firm, mass (1.5cm skin color rubbery non.tender fixed lesion anterior to thyroid gland) centrally 0.59 in, no palpable nodules, nontender and no warm Lymphatic: no lymphadenopathy noted Neuro General: patient oriented x3 Psych Appearance: grossly normal Mental Status: mental status grossly normal Insight: Good insight present (Psych) Judgement: Good judgement present (Psych) Assessment & Plan Assessment & Plan (1) Lesion of neck: Comment: Patient is well-appearing with no acute distress. Patient's history coupled with her examination warrants thyroid ultrasound evaluation. Code(s): L98.9 - Disorder of the skin and subcutaneous tissue, unspecified Plan: Thyroid ultrasound will be ordered and the patient will follow up with her primary care physician on April 29 as previously scheduled. Orders: Orders US thyroid Today E07.9 - Disorder of thyroid, unspecified Coding Level of Care Code Est Pt Level 3 (71878) Diagnoses Lesion of neck L98.9 Time Spent (min) 20
== END 2025-04-19 14:48 | disposition home or self-care (01) ==
PROVIDERS: PCP Internal Medicine; Visit Provider Physician Assistant
DX: L98.9 Disorder of the skin and subcutaneous tissue, unspecified (principal)

== ENCOUNTER → 2025-04-19 13:40 | Outpatient (BNVA) | payer MEDICARE, SELFPAY | PROVIDERS: PCP Internal Medicine; Visit Provider Physician Assistant | DX: R22.1 Localized swelling, mass and lump, neck (principal); K21.9 Gastro-esophageal reflux disease without esophagitis; F41.9 Anxiety disorder, unspecified; E78.5 Hyperlipidemia, unspecified | CPT/HCPCS: 99212 ==

== ENCOUNTER 2025-04-29 10:06 | Outpatient (AMB) | payer MEDICARE, SELFPAY ==
[2025-04-29 10:06] VITALS: BP 118/70; PULSE 80; RESP 14; TEMP 36.7; O2SAT 99; BMI 21.7
--- NOTE | 2025-04-29 10:06 | MHC.PC.OV ---
Vital Signs 04/29/25 10:06 Height 5 ft 3.86 in Weight 126 lb BMI 21.7 BP 118/70 Respiration 14 Pulse 80 Pulse Source Pulse Oximeter Temp 98.0 F Temp Source Temporal Artery Scan Pulse Oximetry (%) 99 Oxygen Delivery Method Room Air Intake Visit Reasons: eval lump back of neck Oncology Patient Navigator Required: No Accompanied by: Self / Same As Patient Allergies Sulfa (Sulfonamide Antibiotics) (SULFA (SULFONAMIDE ANTIBIOTICS)) Allergy (Unknown, Verified 04/29/25 10:13) SKIN HURTS, nerve pain, skin extremely sensitive, painful yellow jacket bee Allergy (Unknown, Uncoded 04/29/25 10:13) rash Tobacco use date assessed: 04/29/25 Dental Screening Dental Screen Date: 03/11/25 [facility] Medical History (Updated 04/29/25 @ 10:57 by Tacho Schwab MD) Interstitial lung disease Hyperlipidemia Anxiety Arthritis GERD (gastroesophageal reflux disease) Volvulus History of ectopic Surgical History Hx of colonoscopy (~11/07/20) History of intestinal surgery History of ovarian cystectomy History of salpingectomy Family History Father Alzheimer's dementia Mother Emphysema of lung Social History Housing: House Are you a primary neurocritical care physician to a significant other at home: No Do you presently have visiting nurse or other home services: No Alcohol intake: current Alcohol intake frequency: holidays/special occasions only Patient Tobacco Use Status: Former Tobacco user Tobacco use type: Cigarette service: No Current occupational status: retired Sexual orientation: Straight/Heterosexual Gender identity: Female Cognitive needs: No Hearing needs: No Vision needs: Yes (rx glasses) Female Reproductive History Menstrual Age of Menarche: 10 Questionnaire PHQ-9 Over the last 2 weeks, how often have you been bothered by any of the following problems? 1. Little interest or pleasure in doing things: not at all 2. Feeling down, depressed, or hopeless: not at all 3. Trouble falling or staying asleep, or sleeping too much: not at all 4. Feeling tired or having little energy: not at all 5. Poor appetite or overeating: not at all 6. Feeling bad about yourself - or that you are a failure or have let yourself or your family down: not at all 7. Trouble concentrating on things, such as reading the newspaper or watching television: not at all 8. Moving or speaking so slowly that other people could have noticed. Or the opposite - being so fidgety or restless that you have been moving around a lot more than usual: not at all 9. Thoughts that you would be better off or of hurting yourself in some way: not at all Total score: 0 Source: Developed by Drs. Bhupinder Helms, Yarely Bae, Merrill Miller and colleagues, with an educational kristal from [employer]. Thrive Questionnaire Date Thrive assessed: 03/11/25 I am a: Patient What is your living situation today?: I have a steady place to live Within the past 12 months, did the food you bought not last and you didn't have the money to get more?: Never true Within the past 12 months, did you worry whether your food would run out before you got money to buy more?: Never true Do you have trouble paying for medicines?: No Do you have trouble getting transportation to medical appointments?: No Do you have trouble paying your heating and electricity bill?: No Do you have trouble taking care of your child, family member or friend?: No Do you have trouble with day-to-day activities such as bathing, preparing meals, shopping, managing finances, etc.?: No Are you currently unemployed and looking for a job?: No Are you interested in more education?: No Please select the resources that you would like help with: None THRIVE Score: 0 AUDIT C Alcohol Use Questionnaire (AUDIT-C) 1. How often do you have a drink containing alcohol?: Monthly or less 2. How many drinks containing alcohol do you have on a typical day when you are drinking?: 1 or 2 3. How often do you have six or more drinks on one occasion?: Never Total Score: 1 MEE-7 AMB Questionnaire MEE-7 Date MEE - 7 assessed: 03/11/25 Feeling nervous, anxious, or on edge: 0 = Not at all Not being able to stop or control worryin = Not at all Worrying too much about different things: 0 = Not at all Trouble relaxin = Not at all Being so restless that it is hard to sit still: 0 = Not at all Becoming easily annoyed or irritable: 0 = Not at all Feeling afraid as if something awful might happen: 0 = Not at all Total MEE-7 score (0-4 normal; 5-9 mild; 10-14 moderate; 15-21 severe): 0 Source: Developed by Drs. Bhupinder Helms, Yarely Bae, Merrill Miller and colleagues, with an educational kristal from [employer]. Physical exam (Primary Care) Vital Signs: Last Vital Signs Temp 98.0 F 04/29/25 10:06 Pulse 80 04/29/25 10:06 Resp 14 04/29/25 10:06 BP 118/70 04/29/25 10:06 Pulse Ox 99 04/29/25 10:06 Oxygen Delivery Method Room Air 04/29/25 10:06 BMI result Body Mass Index 21.7 Tobacco/Smoking Status: Tobacco use Status Tobacco use date assessed 04/29/25 04/29/25 10:14 Patient Tobacco Use Status Former Tobacco user 04/29/25 10:06 Tobacco use type Cigarette 04/29/25 10:06 PHQ-9: PHQ-9 Score PHQ-9: Total score 0 04/29/25 10:19 Thrive Assessment: Date of Thrive Assessment Date Thrive assessed 03/11/25 04/29/25 10:06 Coding Level of Care Code Est Pt Level 4 (40143) Complex EM visit Add On G2211 Diagnoses Interstitial lung disease J84.9 Assessment & Plan Assessment & Plan (1) Interstitial lung disease: Code(s): J84.9 - Interstitial pulmonary disease, unspecified Category: Medical Plan: History of Present Illness - The patient is a 69-year-old female presenting with a neck lump and persistent cough. - Thyroid cyst: The patient noticed a lump on her neck 10 days ago, which is painless and identified as a cyst attached to the thyroid. - Interstitial lung disease: A persistent dry cough has been present for several months, with a chest X-ray in February indicating possible interstitial lung disease. - Interstitial lung disease: The patient has not yet received the recommended CT scan, leading to anxiety about her condition. - Persistent cough: The cough is exacerbated by exertion, with no additional symptoms noted. Social History Review of Systems - Respiratory: Reports persistent dry cough, worsens with exertion. Denies other respiratory symptoms. - Endocrine: Reports neck lump, no associated pain. Physical Exam General: Cooperative and healthy appearing Nutritional Appearance: Well nourished Orientation/consciousness: Patient oriented x3 Limitations: No limitations Head: Normal to inspection General: Appearance normal, both eyes and all related structures Neck: Normal visual inspection Chest: Normal palpation of entire chest wall Respiratory: Interstitial lung disease noted, CT of the chest to be ordered. ormal respiratory effort Neurology: Patient oriented x3 Results - Imaging: Chest X-ray in February indicated findings suggestive of interstitial lung disease. - Labs: Thyroid function tests on March 15 were normal. Plan - Expedite the ultrasound for the thyroid cyst to assess its nature and size. - Order a CT scan of the chest to further evaluate the findings suggestive of interstitial lung disease. - Reassure the patient regarding the non-urgent nature of the interstitial lung disease findings and address her anxiety. Discussion Notes I discussed with the patient the presence of a thyroid cyst, which appears benign, and the plan to expedite the ultrasound for further evaluation. We also talked about the findings suggestive of interstitial lung disease from the chest X-ray and the need for a CT scan to confirm the diagnosis. I reassured her that the condition is not urgent and addressed her concerns about the delay in receiving the CT scan. We agreed to proceed with the necessary diagnostic tests and follow up as needed. Patient Instructions - Follow up with the ultrasound appointment for the thyroid cyst. - Await scheduling for the CT scan of the chest. - Use the patient portal for non-urgent communication with the healthcare team. Orders: Orders CT chest w IV con 04/29/25 J84.9 - Interstitial pulmonary disease, unspecified US thyroid 04/19/25 E07.9 - Disorder of thyroid, unspecified
== END 2025-04-29 11:05 | disposition home or self-care (01) ==
LOC: HO.HMCSH 10:06
PROVIDERS: PCP Internal Medicine; Visit Provider Internal Medicine
DX: J84.9 Interstitial pulmonary disease, unspecified (principal)

== ENCOUNTER → 2025-04-29 10:06 | Outpatient (BNVA) | payer MEDICARE, SELFPAY | PROVIDERS: PCP Internal Medicine; Visit Provider Internal Medicine | DX: J84.9 Interstitial pulmonary disease, unspecified (principal); E04.1 Nontoxic single thyroid nodule; R05.3 Chronic cough; Z13.30 Encounter for screening examination for mental health and behavioral disorders, unspecified | CPT/HCPCS: 96127; 99212 ==

== ENCOUNTER 2025-05-29 13:19 | Outpatient (REF) | payer MEDICARE, SELFPAY ==
--- NOTE | ~2025-05-29 | US_ITS ---
EXAMINATION: US THYROID CLINICAL INFORMATION: E07.9. COMPARISON: None available. TECHNIQUE: Linear transducer grayscale and color Doppler examination with attention to the region of the thyroid. FINDINGS: SIZE: Measurements of the thyroid lobes and nodules are given in sagittal, anteroposterior and transverse dimensions respectively. Right Thyroid Lobe: 5.7 x 1.4 x 0.9 cm, volume 3.9 mL. Parenchyma: The gland echotexture is heterogeneous. Thyroid vascularity is increased. Left Thyroid Lobe: 5.5 x 1.5 x 1.8 cm, volume 8.1 mL. Parenchyma: The gland echotexture is heterogeneous. Thyroid vascularity is normal. Isthmus: 1.0 cm in maximum AP dimension. Estimated total number of nodules greater than or equal to 1 cm: 3. Tacker Off nodules are described as follows: 1. Location: Lower pole, right lobe. Size: 1.0 x 0.64 x 0.9 cm, volume 0.3 mL. Nodule characteristics: Composition: Mixed cystic and solid (1). Echogenicity: Hyperechoic (1). Shape: Not taller than wide (0). Margins: Smooth (0). Echogenic Foci: None (0). ACR TI-RADS total points: 2 ACR TI-RADS category: 2 2. Location: [Upper pole, right lobe. Size: 0.61 x 0.55 x 0.60 cm, volume not documented mL. Nodule characteristics: Composition: Mixed cystic and solid (1). Echogenicity: Hypoechoic (2). Shape: Not taller than wide (0). Margins: Smooth (0). Echogenic Foci: None (0). ACR TI-RADS total points: 3 ACR TI-RADS category: 3 3. Location: Lower pole, left lobe. Size: 1.3 x 1.1 x 1.3 cm, volume 1.0 mL. Nodule characteristics: Composition: Mixed cystic and solid (1). Echogenicity: Isoechoic (1). Shape: Not taller than wide (0). Margins: Smooth (0). Echogenic Foci: None (0). ACR TI-RADS total points: 2 ACR TI-RADS category: 2 4. Location: Lower pole, left lobe. Size: 0.52 x 0.62 x 0.76 cm, volume 0.13 mL. Nodule characteristics: Composition: Mixed cystic and solid (1). Echogenicity: Hypoechoic (2). Shape: Not taller than wide (0). Margins: Smooth (0). Echogenic Foci: None (0). ACR TI-RADS total points: 3 ACR TI-RADS category: 3 5. Location: Isthmus. Size: 2.5 x 1.7 x 2.4 cm, volume 5.4 mL. Nodule characteristics: Composition: Mixed cystic and solid (1). Echogenicity: Hypoechoic (2). Shape: Not taller than wide (0). Margins: Smooth (0). Echogenic Foci: None (0). ACR TI-RADS total points: 3 ACR TI-RADS category: 3 NODES: No lymphadenopathy is seen in the tissue surrounding the thyroid gland. US/US thyroid IMPRESSION: ACR TI RADS category 3. ACR TI-RADS RECOMMENDATION REFERENCE: Ultrasound-guided fine-needle aspiration, followup ultrasound, no further follow up. * TR1 (0 point) and TR2 (2 points): No FNA or follow up. * TR3 (3 points): FNA if more than or equal to 2.5 cm in maximum dimension, followup ultrasound in 1, 3 and 5 years if 1.5 to 2.4 cm in maximum dimension. * TR4 (4-6 points): FNA if more than or equal to 1.5 cm in maximum dimension, followup ultrasound in 1, 2, 3 and 5 years if 1 to 1.4 cm in maximum dimension. * TR5 (more than or equal to 7 points): FNA if more than or equal to 1 cm in maximum dimension, followup ultrasound every year for 5 years if 0.5 to 0.9 cm in maximum dimension. * TR3, TR4 or TR5 nodules that are below the size threshold for followup receive no follow up. Electronically signed by: Delmar Hernandez MD 05/29/2025 02:14 PM [facility]
== END 2025-05-29 13:20 | disposition home or self-care (01) ==
LOC: HO.HMGCX 13:19
PROVIDERS: PCP Internal Medicine; Visit Provider Physician Assistant
DX: E07.9 Disorder of thyroid, unspecified (principal)
CPT/HCPCS: 76536

== ENCOUNTER → 2025-05-29 13:22 | Outpatient (BNV) | payer MEDICARE, SELFPAY | PROVIDERS: PCP Internal Medicine; Visit Provider Radiology Diagnostic Radiology | DX: E07.9 Disorder of thyroid, unspecified (principal) | CPT/HCPCS: 76536 ==